=== PATIENT | female | born 1935 | race Caucasian/White ===

== ENCOUNTER 2023-05-22 09:45 | Inpatient (IN) | payer MEDICARE, SELFPAY ==
[2023-05-20] VITALS (14 sets, daily range): BP systolic 134–214; BP diastolic 96–138; BMI 21.8
--- NOTE | 2023-05-20 14:28 | ED.CVA ---
History of Present Illness
General
Chief Complaint: CVA/TIA Symptoms
Source: patient, records and ambulance crew
Time Seen by Provider: 05/20/23 14:28
Onset of Stroke Symptoms
Onset of symptoms known: Yes
Date of onset of symptoms: 05/20/23
Travel History
Have you had any contact with someone who has COVID-19?: Unable to Answer
Do you have any symptoms of coronavirus? Fever > 100 degrees, chills, cough, shortness of breath, sore throat, loss of taste or smell, muscle aches, or headache?: Unable to Answer
History of Present Illness
History of Present Illness:
This patient is an 88-year-old female presents emergency department with reported slurred speech and facial droop. Patient reportedly felt dizzy at 8 AM this morning but when staff saw her they did not notice any abnormalities. Then, at around
1:10 PM, patient called staff because she was not feeling right, and was noted to have slurred speech and a facial droop. EMS was called. Patient's blood pressure reportedly very elevated at the 200s over 120s. Patient is not on anticoagulant
medication and just takes a daily aspirin. No recent trauma.
Past History
Past History
ED Past Medical History: Arrthythmia (PAF), HTN, Psychiatric (Anxiety on Ativan) and Other (Cellulitis, hyponatremia, dementia); Negative Hypercholesterolemia, IDDM, NIDDM, MT or Renal failure
Social History
Tobacco: Non-smoker
Alcohol: Daily (Scotch one glass)
Drug: None
Personal:
Living: alone
Employment: Retired
Family History
Family History: Hypertension
Phy Exam
Physical Exam
Physical Exam:
GENERAL: Alert , in no apparent distress
EYE: pupils equal and reactive,, heel MT, no nystagmus
NECK: Supple, no significant adenopathy.
ENT: o/p clr, mmm.
CARDIAC: Irregularly irregular, tachycardic
LUNGS: Clear breath sounds bilaterally, no acute respiratory distress, no wheezes rales or rhonchi
ABDOMEN: Soft, without focal tenderness, no r/g
NEUROLOGICAL: Alert and oriented, no focal neurodeficits noted with the exception of slurred speech, slightly flattened nasolabial fold on the right which resolves with large smile
SKIN: Warm and dry, skin intact.
MUSCULOSKELETAL: No edema, well perfused.
PSYCH: Normal and appropriate interaction.
Course
Orders/Labs/Results
Orders:
Orders
05/20/23
Electrocardiogram (*1) Stat
Reason for Study: Chest Pain
Comment: DONE NO ORDER WAS ENTERED!!
05/20/23 14:24
Electrocardiogram (*1) Urgent
Reason for Study: Other
Other Reason for Exam: Possible Stroke
Bedside Glucose- Treatment ONCE
Cardiac Monitoring- Treatment ONCE
IV Insert/Care/Rem.- Treatment PRN
Vital Signs As Directed
Frequency: Other
Weight As Directed
Frequency: Once
Comment: ZERO STRETCHER SCALE FOR ACCURATE WEIGHT
O2 Therapy [RESP] Urgent
Titrate/Wean O2 to maintain O2 sat greater than (%): 93
Special Instructions: MAINTAIN CONTINUOUS O2 SATS > OR = 93%
05/20/23 14:25
CT Head W/o Cont STROKE ALERT Urgent
Reason For Exam: stroke alert, facial droop and slurred speech
EKG- Treatment ONCE
05/20/23 14:29
Labetalol HCl [Trandate] 20 mg .ROUTE .STK-MED ONE
05/20/23 14:30
CT Head/Neck Ang STROKE ALERT Urgent
Reason For Exam: stenosis
05/20/23 14:34
Cardiovascular Evaluation Urgent
Comment: ADD ON
Complete Blood Count/With Diff Urgent
Comprehensive Metabolic Panel Urgent
Ferritin Routine
Comment: ADD ON
Folate Routine
Comment: ADD ON
Glycohemoglobin (HgbA1c) Urgent
PTT Urgent
Prothrombin Time Urgent
TSH Reflex To Free T4 Routine
Comment: ADD ON
Troponin I Urgent
Vitamin B12 Routine
Comment: ADD ON
05/20/23 14:55
Urinalysis Reflex To Culture Urgent
Date Specimen was Collected: 05/20/23
Time Specimen was Collected: 14:45
Urine Microscopic Reflex Cult Urgent
Urine Culture Urgent
MATEUS Source: U
Specimen Description:
Date Specimen was Collected: 05/20/23
Time Specimen was Collected: 14:45
05/20/23 Dinner
Low Fat
At Your Request: Limited, Analyst Market Intelligence Required
Does patient need a safe tray?: No
NPO
Allow oral meds: No
Allow clear liquids: No
Comment: failed ED swallowing screening
05/20/23 15:05
DIETARY CONSULT Routine
Reason for Consult: failed swallowing screening
Speech Therapy Eval & Treat Routine
05/20/23 15:18
NEUROLOGY CONSULT Routine
Consulting Provider: Kerwin Morton
Was physician already notified: Yes
05/20/23 15:33
Add On- LAB Routine
Tests Added?: folate, ferritin, TSH reflex, B12, lipid panel, hbA1c
05/20/23 15:39
Admit/Transfer Patient As Directed
Co-Sign Provider:
Level of Care: Observation services
Assign to:: Telemetry
Physician / Group: Alan/hospitalist
Diagnosis: slurred speech, hand numbness
Reason for Telemetry: CVA/TIA
Date to Stop Telemetry: 05/23/23
Time to Stop Telemetry: 11:[address] Non Medication Order As Directed
Physician Order: exchange powell
Above order entered?: Yes
05/20/23 15:40
Code Status As Directed
Resuscitation Status: Full Code
05/20/23 15:43
HydrALAZINE [Apresoline] 10 mg IV Q4HPRN PRN
05/20/23 16:13
Urinalysis Urgent
Date Specimen was Collected: 05/20/23
Time Specimen was Collected: 16:12
Urine Microscopic Urgent
Date Specimen was Collected: 05/20/23
Time Specimen was Collected: 16:12
05/20/23 16:42
Acetaminophen [Tylenol/Feverall] 650 mg RECTAL Q4HPRN PRN
Acetaminophen [Tylenol] 1,000 mg PO Q8
Acetaminophen [Tylenol] 650 mg PO Q4HPRN PRN
05/20/23 16:42
Case Management Consult ONCE
Case Management Consult: Discharge Planning
Comment: stroke/tia
DIETARY CONSULT Routine
Reason for Consult: stroke/TIA
WOUND/OSTOMY CONSULT Routine
Reason for Consult: LE wound
Activity As Directed
Activity Level: As Tolerated
NIH Stroke Scale As Directed
Directions: Per protocol
Comment: every shift and with any change in condition or mental status
Neurological Checks As Directed
Frequency: q4h
Additional Instructions:: q4h x 24h upon admission to the floor, then qshift & with any change in condition
and mental status
Patient Education As Directed
Type: Stroke education packet
Comment: provide to patient and family
Pneumatic Compression Sleeves As Directed
Type: Knee high
Swallow Screening CVA/TIA ONLY As Directed
Comment: NPO until swallowing screening completed
If patient FAILS swallow screening:: NPO, Speech Therapy consult, Aspiration Precautions
If patient PASSES swallow screening, diet:: Low Fat
Above diet order entered?: Yes- passed screening
Vital Signs As Directed
Frequency: Per unit guidelines
Ot Eval And Treat Routine
Pt Eval And Treat Routine
Activity Level: As Tolerated
Speech Therapy Eval & Treat Routine
DX Deep Vein Thrombosis Video Routine
05/20/23 17:00
Aspirin Low Dose EC [Aspir Low (Enteric Coated)] 81 mg PO DAILY
Clopidogrel Bisulfate [Plavix] 75 mg PO DAILY
Flush (0.9% Sodium Chloride) [Flush (Nss)] See Dose Instructions IV PER PROTOCOL
05/20/23 20:00
Metoprolol Xl [Toprol Xl] 25 mg PO DAILY@1999
Sennosides [Senokot] 8.6 mg PO DAILY@1999
05/20/23 23:07
CR Chest Portable - 1 View Stat
Comment:
Reason For Exam: chest pain
Reason Study Needs to be Portable: Unable to Transport
05/20/23 23:10
0.9% Sodium Chloride [Nss (Preservative Free)] 8 ml IV NOW STA
Famotidine [Pepcid] 20 mg IV NOW STA
05/20/23 23:16
BMP [Basic Metabolic Panel] Stat
Magnesium Stat
05/20/23 23:17
Ipratropium/Albuterol Sulfate [Duoneb] 3 ml INH R Q4HPRN PRN
05/21/23 06:01
Ondansetron Injectable [Zofran] 4 mg IV NOW STA
05/21/23 06:02
Cardiovascular Evaluation IN AM
05/21/23 08:00
Docusate Sodium [Colace] 200 mg PO DAILY
Losartan [Cozaar] 100 mg PO DAILY
Pantoprazole [Protonix] 20 mg PO DAILY
Polyethylene Glycol Powder [Miralax] 17 grams PO DAILY
05/21/23 09:18
Wound Care As Directed
Location of Wound: LLE dry scabbed areas
Treatment of Wound: -cover with adaptic, gauze and kena prn drainage/protection after cleaning with saline,
change daily.
Moisture lotion to dry intact skin Le's daily.
05/21/23 09:25
Videofluoroscopy [RF Video Fluoro Swallow Exam] Routine
Comment:
Reason For Exam: Swallowing Function
05/21/23 Lunch
IDDSI 4 - Pureed
At Your Request: Limited Participation
Does patient need a safe tray?: No
Liquid Modification: Extremely Thick (Pudding)
Special Instructions: One to One Supervision
05/21/23 12:28
Echo 2D MMode Color/Doppler Routine
Reason for Study: acute stroke
05/21/23 12:46
HEMATOLOGY CONSULT Routine
Consulting Provider: Minh Roberson
Was physician already notified: Yes
05/21/23 12:57
Physiatry Consult Routine
Consulting Provider: Ray Atwood
Was physician already notified: Yes
05/21/23 13:30
Lansoprazole [Prevacid] 15 mg PO DAILY
05/21/23 14:19
CARDIOLOGY CONSULT Routine
Consulting Provider: Von Fay
Was physician already notified: Yes
05/21/23 15:33
MR Brain Without Contrast Routine
Reason For Exam: stroke workup- right facial drooping, dysarthria
Recent pill cam endoscopy?: No
05/21/23 16:09
MRSA Screen Routine
MATEUS Source: Nose
Specimen Description:
05/21/23 18:00
Atorvastatin [Lipitor] 40 mg PO QPM
05/21/23 20:00
Metoprolol [Lopressor] 12.5 mg PO BID
05/21/23 20:42
Powell Catheter [Catheter- Indwelling] As Directed
Reason for insertion: Chronic Powell on Admit
05/22/23
DX DVT Prevention Inpt Video Routine
05/22/23 05:55
Basic Metabolic Panel IN AM
Complete Blood Count/No Diff IN AM
Magnesium IN AM
05/23/23 05:38
Basic Metabolic Panel IN AM
Complete Blood Count/No Diff IN AM
05/23/23 11:00
DC Protocol for Telemetry ONCE
05/24/23 06:14
Basic Metabolic Panel IN AM
Complete Blood Count/No Diff IN AM
05/25/23 05:39
Basic Metabolic Panel IN AM
Complete Blood Count/No Diff IN AM
Abnormal Lab Results
05/20/23 05/20/23 05/20/23
14:34 14:55 16:13
WBC
RDW 14.6 H %
(11.5-14.5)
Monocytes % 9.8 H %
(1.7-9.3)
Sodium 129 L mmol/L
(135-145)
Chloride 95 L mmol/L
(98-107)
Creatinine
Hemoglobin A1c 5.9 H %
(4.0-5.6)
Total Bilirubin 1.6 H mg/dl
(0.2-1.3)
AST 38 H U/L
(14-36)
Alkaline Phosphatase 168 H U/L
(38-126)
Total Cholesterol 278 H mg/dl
(50-199)
Urine Nitrite (Reflex) Positive A
(Negative)
Ur Leukocyte Esterase 2+ A
(Negative)
Leukocyte Esterase Rfl 2+ A
(Negative)
Urine WBC 30-40 A /HPF
(0-5)
Urine Bacteria Few A
(Negative)
Urine Bacteria (Reflex) Moderate A
(Negative)
05/20/23 05/21/23 05/22/23
23:16 06:02 05:55
WBC 4.3 L 10^3/uL
(4.8-10.8)
RDW 14.7 H %
(11.5-14.5)
Monocytes %
Sodium 128 L mmol/L 131 L mmol/L
(135-145) (135-145)
Chloride 96 L mmol/L
(98-107)
Creatinine 0.5 L mg/dL
(0.6-1.0)
Hemoglobin A1c
Total Bilirubin
AST
Alkaline Phosphatase
Total Cholesterol 252 H mg/dl
(50-199)
Urine Nitrite (Reflex)
Ur Leukocyte Esterase
Leukocyte Esterase Rfl
Urine WBC
Urine Bacteria
Urine Bacteria (Reflex)
05/22/23 05:55
05/22/23 05:55
Vital Signs
Initial and Last Documented VS:
Initial Vital Signs
Pulse Pulse Ox
92 98
05/20/23 14:25 05/20/23 14:25
Last Documented Vital Signs
Temp Pulse Resp BP Pulse Ox
98.4 F 98 16 140/90 97
05/26/23 15:00 05/26/23 15:00 05/26/23 15:00 05/26/23 15:00 05/26/23 15:00
*Critical Care Note
Total Time (30-74mins, 75-104mins- exclusive of procedures): Not Applicable
Update Note
Update Note:
Patient presents to the Emergency Department with slurred speech and reported facial droop
Number and Complexity of Problems Addressed at the Encounter
� Chronic conditions affecting care:
� Acute Exacerbation and/or Progression of Chronic Illness:
� Differential Diagnosis includes: But not limited to TIA, CVA, hypertensive urgency, etc.
Amount and/or Complexity of Data to be Reviewed and Analyzed
� I performed an independent evaluation of and my interpretation is:
EKG: Read by me, A-fib, no acute ischemia, normal rate
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 No other significant vascular occlusion, aneurysm or dissection.
Right upper lobe nodularity as described likely reflecting chronic waxing/waning infectious/inflammatory processes. Recommend follow-up noncontrast CT chest in 3-6 months.
Xrays:
Laboratory Studies: CBC normal, remaining labs pending
Other:
� Review of other/old records reveals: Discharge summary reviewed September 2021, discharged October 29, patient noted to have mental status change, neurological exam generally unremarkable
� Clinical information was obtained by an independent historian:
� Prescriptions/Medications Considered but not given:
� Further testing considered but not performed:
Risk of Complications and/or Morbidity or Mortality of Patient Management
� Social determinants of health affecting care:
� Discussion with other providers (PCP, Hospitalists, Consultants, etc):
� Escalation of care including admission/observation vs risk of discharge considered: 3:05 PM bedside evaluation with Dr. Gentile from neurology� Patient is not considered a TNK or IAT candidate given symptoms are slightly
improving, not consider debilitating, NIH less than 6. Her history of von Willebrand's is also a relative contraindication to TNK. Dr. Morton will order aspirin Plavix and we will admit to the hospitalist with close monitoring of blood pressure.
ED Attending Note
-
Portions of this chart may have been created with voice recognition software.� Occasional wrong word or��sound alike� substitutions may have occurred due to the inherent limitations of voice recognition software.
Discharge Plan
Departure
Patient Disposition: Admit
Date of Disposition: 05/20/23
Time of Disposition: 15:07
Admit to: Telemetry
Presentation/result/management discussed w/ accepting /: audrey
Condition: Fair
Discharge Problem:
TIA (transient ischemic attack), Hypertension
Interventions
Interventions:
*Risk Screen - Suicide Last Done: 05/20/23 14:55
*General Assessment Last Done: 05/20/23 14:55
*Neglect/Abuse Screening Last Done: 05/20/23 14:46
ED- Fall Risk Assessment Last Done: 05/20/23 14:55
*ED COVID-19 Vaccine History Last Done: 05/20/23 14:55
*Nursing Disposition Last Done: 05/20/23 16:40
ED- Pulmonary Assessment Last Done: 05/20/23 15:07
ED- Neurological Assessment Last Done: 05/20/23 14:59
ED- Cardiac Assessment Last Done: 05/20/23 15:07
ED Swallowing Screen Last Done: 05/20/23 15:01
Discharge Date and Time
Discharge Date/Time: 05/20/23 16:40
[2023-05-20 14:40] LABS: % Basophils 0.8 % (0-2); % Eosinophils 1.2 % (0-6); % Immature Granulocytes 0.2 % (0-0.5); % Monocytes 9.8 % (1.7-9.3); Absolute Eosinophils 0.1 10^3/uL (0-0.7); Absolute Lymphocytes 1.3 10^3/uL (1.2-3.4); Absolute Monocytes 0.5 10^3/uL (0.1-0.6); Hemoglobin 14.4 g/dL (12.0-16.0); Mean Corp Hgb Conc. 33.5 g/dL (33.0-37.0); Mean Corpuscular Hgb 30.4 pg (27.0-31.0); Mean Corpuscular Volume 90.7 fL (81.0-99.0); Mean Platelet Volume 9.9 fL (7.4-10.4); Nucleated Red Blood Cells % 0 %; Platelet Count 306 10^3/uL (130-400); Red Blood Cell Count 4.74 10^6/uL (4.20-5.40); Red Cell Dist. Width 14.6 % (11.5-14.5); White Blood Cell Count 4.9 10^3/uL (4.8-10.8)
[2023-05-20 14:42] LABS: Glucose - Point of Care 80 mg/dl (70-99)
[2023-05-20 14:49] LABS: PT 13.2 Sec (11.4-14.6)
[2023-05-20 14:50] LABS: APTT 32.6 Sec (23.4-35.0)
--- NOTE | 2023-05-20 14:54 | CON.NEURO4 ---
Addendum entered and electronically signed by Kerwin Morton MD 05/20/23 16:50:
Studies reviewed.
I have personally examined the patient. I reviewed and agree with the TRIMMING CUTTER's Note.
My addenda:
Awake, alert, interactive. No acute distress.
Speech mildly thick and mild difficulty with word finding.
Follows 2-step requests w/ difficulty. No tremor.
Extra-ocular movements grossly intact.
Facial movements full and symmetric. Hearing intact to normal conversational volume.
Normal UE movements bilaterally.
Neck: full ROM.
Chest: no dyspnea
Heart: no JVD
Ext: (-) Clubbing, (-) Cyanosis, (-) Edema
IMPRESSIONS/RECOMMENDATIONS:
Abrupt onset of aphasia and dysarthria
? Due to hypertensive encephalopathy, TIA, or stroke
Unlikely to not cause harm by providing Tenecteplase due to prior diagnosis of Von Willebrand disease. No evidence of clot for retrieval by intra-arterial thrombectomy
restart Aspirin 81 mg daily then lifelong due to atrial fibrillation and elevated risk of hemorrhage
add Clopidogrel for 21 days then discontinue
rehab evaluations
can check MRI of brain, not clear would change therapy
goal of gradual improvement of hypertension, attempt to keep > 140/90 tonight, < 220/120
no further evaluation of the aneurysms demonstrated needed
D/W patient / family / nursing
Will continue to follow.
Original Note:
Documented by User: Lori Courtney NP 05/20/23 15:32
Consultation - Neurology 4
-
CONSULTING PHYSICIAN: Kerwin Morton MD
REFERRING PHYSICIAN: ER/Dr. Powell
DICTATED BY: ROBBIE Partida
DATE/TIME OF REQUEST: 05/20/23
DATE/TIME OF CONSULTATION: 05/20/23
Reason for Consultation: Stroke Alert
History of Present Illness:
This is an 88-year-old right-handed female who has presented to the hospital from [facility] as a stroke alert with report of dysarthria and right facial drooping. Patient was last known normal by staff at 0800 today (05/20/23). At 1300 she called
the nurses station and reported that she didn't feel well. Staff noted that her speech was dysarthric and her right face appeared droopy, prompting them to call 911. EMS report that her blood pressure was 210/130. CT head was obtained on arrival to
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 CTA head/neck is negative for any acute abnormalities but demonstrates a 4mm left MCA M3/M4 saccular aneurysm. NIHSS is currently a 3 for mild
right facial drooping, mild dysarthria, and mild aphasia. She denies any headache, dizziness, vision changes, numbness, weakness, chest pain,and palpitations. She has a chronic powell catheter and reports some dyspnea. She has Afib but is only taking
aspirin 81mg daily per Cardiology due to a history of von Willebrand's disease. She was previously evaluated by our Neurology service for confusion.
From previous evaluation by Dr. Hurst on 10/24/21:
'Patient is a right-handed 86-year-old woman with a past no history of atrial fibrillation, hypertension, von Willebrand's disease presenting the hospital as her daughter had talked her over phone and noted she seemed confused off her normal
baseline.� Patient has been living at [facility] in independent living apartment.� Patient at first feels like she is at [facility] and says that she came to the hospital because she was not feeling well but otherwise not able to give a great
deal of information about the events leading up to her hospitalization.� Reports that she has had a rash recently.� When asked about her recent medical conditions doctors visits and care at home she is not able to give a great deal of details
regarding this.� Spoke with her daughter Nikki over the phone who relayed that patient does have some confusion on and off over the phone but generally is conversational and they talk about their family and sometimes current sports events.� She
has not had any completely inappropriate speech or saying things that are not true.� Around of this year there was a change in her garbage schedule which patient was not able to adapt to at all and was confused by it not able to alter
her routines to meet the new schedule, has had other instances of not being able to adapt to changes in schedule or logistics of her independent living apartment.� There was a visit with physical therapy several months ago in which they noted that
there may been signs on visual examination of possible stroke.� Patient's daughter asked the patient about what it happened about following up with one particular doctor as she been taking her medications she will often say that she had not followed
up with her doctor as instructed or followed through with a plan.� Daughter did relate that she seemed to have a easy bleeding tendency in the past with a lot of bruising, to her knowledge no serious stomach or intestinal bleeding or requirement of
hospitalization, unclear on if she had been on aspirin and more powerful blood thinners at one point she does see a helicopter specialist.'
Past Medical History: Afib (aspirin), HTN, von Willebrand's disease, bradycardia/SSS, dementia, anxiety, cellulitis, SIADH, RA, GERD, squamous cell carcinoma
Surgical History: T&A, D&C x3, Mohs and radiation to LLE
Family History: Mother- CVA age 86. Brother- Parkinson disease.
Social History: Former tobacco. Daily scotch. No illicit drug use.
Allergies: See below.
Home Medications: See below.
Review of Symptoms:
Patient denies any fever, headache, chest pain, shortness of breath, GI or symptoms.
�Per the HPI.�All systems are reviewed negative except above.
Physical Exam:
The patient is afebrile, abdomen is nondistended, breathing is slightly labored, skin with PVD discoloration in BLE, no edema.
NIH Stroke Scale:
I performed the NIH stroke scale on the patient on 05/20/23 at 1430. The patient scored 3 points on the NIH stroke scale assessment, which were assigned as follows: See below.
Neurologic Examination:
The patient is awake, alert and oriented x 3. She is able to follow commands and answer questions appropriately. There is mild aphasia and dysarthria. On cranial nerve assessment, pupils are 3 mm bilateral, round and reactive to light and
accommodation. Visual rouse appear full. Extraocular movements are intact. Facial sensations are intact and bilaterally symmetrical, there is mild right facial drooping. Hearing is intact bilaterally to normal conversation volume. Tongue palate and
uvula are midline. Sternocleidomastoid strengths are full bilaterally. Motor strengths are 5/5 bilateral upper and lower extremities on medical research Ayr scale. There is no drift or involuntary movement noted. Deep tendon reflexes are 2+
bilateral upper and lower extremities and Babinski is absent bilaterally. There was no extinction noted on double simultaneous stimulation. Coordination is intact by finger to nose bilaterally.
Lab Results: See below.
Neuro Imaging:
1. CT Head 05/20/23: No acute intracranial abnormality noted. ASPECTS Score: 10. Stable encephalomalacia in the left parieto-occipital lobe.
2. CTA head/neck 05/20/23: 4 mm saccular aneurysm involving a left MCA M3/M4 cortical branch. No other significant vascular occlusion, aneurysm or dissection. Right upper lobe nodularity as described likely reflecting chronic waxing/waning
infectious/inflammatory processes. Recommend follow-up noncontrast CT chest in 3-6 months.
Differentials for the patient's presentation include:
1. Small left-sided ischemic infarct or TIA likely producing speech changes and right facial drooping.
2. Hypertensive or metabolic encephalopathy possible producing symptoms.
3. Dementia.
4. Von Willebrand's disease.
5. Incidental L MCA M3/M4 saccular aneurysm.
Patient has the following risk factors for their symptoms: Afib not on anticoagulation, HTN, age
IV Tenecteplase/IAT candidacy: Not a candidate due to NIHSS <6, relative contraindication von willebrands disease.
Recommendations:
-Initiate DAPT with aspirin 81mg and clopidogrel 75mg daily x21 days.
-Check aspirin efficacy testing.
-Permissive hypertension SBP<220, DBP<120 until 05/21/23 at 1300.
-MRI brain noncontrast ordered/pending.
-Checking blood work for metabolic abnormalities.
-Infectious workup per ER.
-LDL goal <70. Lipid panel is pending.
-Goal normoglycemia, hbA1c is pending.
-NIHSS and neurological checks per unit guidelines.
-Provide patient with a stroke education packet.
-PT/OT/ST evaluations.
-DVT prophylaxis.
-Outpatient follow-up with Neurosurgery regarding L MCA aneurysm.
-Will follow pending results.
Discussed patient care with: Dr. Morton, Dr. Powell, nursing staff, the patient
NIH Stroke Score
Subsequent NIH Scale
Date of Subsequent NIH Scale: 05/20/23
Time of Subsequent NIH Scale: 14:30
NIH Stroke Score
Level of Consciousness: 0 - Alert
LOC Questions: 0-Answers both correctly
LOC Commands: 0-Performs both correctly
Best Horizontal Gaze: 0-Normal
Visual Rouse: 0=Normal, no visual loss
Facial Palsy: 1=Minor paralysis
Motor - Right Arm: 0=No drift 10 seconds
Motor - Left Arm: 0=No drift 10 seconds
Motor - Right Le-No drift 5 seconds
Motor - Left Le-No drift 5 seconds
Limb Ataxia: 0-Absent
Sensation: 0-Normal
Best Language: 1-Mild aphasia
Dysarthria: 1-Mild slurring
Extinction and Inattention: 0-No abnormality
Total Score:: 3
Vital Signs and Labs
-
Vital Signs and Labs:
Vital Signs
Temp Pulse Resp BP Pulse Ox
97.4 F 97 23 196/128 98
05/20/23 14:48 05/20/23 15:00 05/20/23 15:00 05/20/23 15:00 05/20/23 15:00
Lab Results
05/20/23 14:34
05/20/23 14:34
PT 13.2 Sec (11.4-14.6) 05/20/23 14:34
INR 1.00 05/20/23 14:34
APTT 32.6 Sec (23.4-35.0) 05/20/23 14:34
Sodium 129 mmol/L (135-145) L 05/20/23 14:34
Potassium 4.9 mmol/L (3.5-5.1) 05/20/23 14:34
BUN 12 mg/dl (7-17) 05/20/23 14:34
Glucose 91 mg/dl (70-99) 05/20/23 14:34
Calcium 9.4 mg/dl (8.4-10.2) 05/20/23 14:34
Medications
-
Home Medications
Medication Instructions Recorded
metoprolol succinate 25 mg 25 mg PO DAILY@1999 Blood pressure 08/06/16
tablet,extended release 24 hr
losartan 100 mg tablet 100 mg PO DAILY Blood pressure 10/24/21
acetaminophen 500 mg tablet 1,000 mg PO Q8H Pain 05/20/23
(Tylenol Extra Strength)
aspirin 81 mg tablet,delayed 81 mg PO DAILY Blood Clot 05/20/23
release Prevention/Tx
cholecalciferol (vitamin D3) 50 100 mcg PO SUMOWEFR@0800 Supplement 05/20/23
mcg (2,000 unit) capsule (Vitamin
D3)
cholecalciferol (vitamin D3) 50 50 mcg PO TUTHSA@0800 05/20/23
mcg (2,000 unit) tablet (Vitamin
D3)
docusate sodium 100 mg capsule 200 mg PO DAILY 05/20/23
polyethylene glycol 3350 17 gram 17 grams PO DAILY Constipation 05/20/23
oral powder packet
sennosides 8.6 mg tablet (Senokot) 8.6 mg PO DAILY@1999 Constipation 05/20/23
Allergies
-
Allergies
Allergy/AdvReac Type Severity Reaction Status Date / Time
amiodarone Allergy Unknown Verified 05/20/23 14:39
amlodipine Allergy Unknown Verified 05/20/23 14:39
desmopressin Allergy Dehydration Verified 05/20/23 14:39
diltiazem Allergy Unknown Verified 05/20/23 14:39
doxycycline Allergy Unknown Verified 05/20/23 14:39
furosemide Allergy Unknown Verified 05/20/23 14:39
hydrochlorothiazide Allergy DEHYDRATION Verified 05/20/23 14:39
infliximab Allergy flushing Verified 05/20/23 14:39
and
breathing
problems
levofloxacin Allergy numbness Verified 05/20/23 14:39
sulfamethoxazole Allergy Unknown Verified 05/20/23 14:39

Documented by User: Kerwin Morton MD 05/20/23 16:19
NIH Stroke Score
NIH Stroke Score
Total Score:: 3
[2023-05-20 15:04] LABS: Urine Albumin Trace (Neg - Trace); Urine Bilirubin Negative (Negative); Urine Character Slightly Cloudy (Clear); Urine Color Straw; Urine Glucose Negative (Negative); Urine Ketone Negative (Negative); Urine Leukocyte 2+ (Negative); Urine Nitrite Positive (Negative); Urine Occult Blood Negative (Negative); Urine Urobilinogen Negative (Neg - 1+)
[2023-05-20 15:05] LABS: ALT (SGPT) 34 U/L (0-35); AST (SGOT) 38 U/L (14-36); Albumin 4.5 g/dl (3.5-5.0); Alkaline Phosphatase 168 U/L (38-126); Blood Urea Nitrogen 12 mg/dl (7-17); Calcium 9.4 mg/dl (8.4-10.2); Carbon Dioxide 28 mmol/L (22-30); Chloride 95 mmol/L (98-107); Glucose 91 mg/dl (70-99); Potassium 4.9 mmol/L (3.5-5.1); Sodium 129 mmol/L (135-145); Total Bilirubin 1.6 mg/dl (0.2-1.3); Total Protein 8.2 g/dl (6.3-8.2); eGFR > 60.00
[2023-05-20 15:14] LABS: Urine Amorphous Seen; Urine Bacteria Moderate (Negative)
[2023-05-20 15:15] LABS: Urine Red Blood Cell 0-2 /HPF (0-2)
--- NOTE | 2023-05-20 15:15 | HPS.HSE ---
Family Physician
-
Family Physician: Nica Lynn
Chief Complaint
-
BL hand numbness
History of Present Illness
HPI: 88-year-old female PMH Alzheimer's dementia, Von Willebrand disease type 1, Paroxysmal atrial fibrillation, SIADH, Chronic lower extremity hypertrophic lichen planus, Essential hypertension, history of alcohol use disorder, COPD, Rheumatoid
arthritis; p/w slurred speech and facial droop.�
Patient reportedly felt dizzy in the morning. At around 1:10 PM, patient called [facility] staff because she was not feeling right, and was noted to have slurred speech and facial droop.�EMS was called.� Patient's blood pressure reportedly very elevated at
the 200s over 120s.� Patient is not on anticoagulant medication and just takes a daily aspirin.� No recent trauma.
Of note, patient is a poor historian, but she is able to inform me that she has numbness in both her hands.
Denies to other symptoms.
Medical History
Past Medical History
Past Medical History: Reports Cancer (Squamous cell CA 2012 right/left legs), COPD (PNA/ lung mass 09/16/2014), GERD, HTN, Valvular Disease, Psychiatric (Anxiety) and Other (Hyponatremia, SIADH, CHITIMACHA)
Past Surgical History: Reports Gynocological (D&C), Tonsilectomy and Other (Bilateral cataract , Mohs surgery 2012 left/right leg squamous cell CA)
Social History
Tobacco: Non-smoker
Alcohol: Occasional
Drug: None
Personal: Single
Living: Alone ([facility])
Employment: Retired
Family History
Family History: Not pertinent
Allergies / Home Medications
Allergies reflects when Allergies were last updated in [employer].
Home Medications with original date entered in [employer]
Allergy/Medication List:
Allergies
Allergy/AdvReac Type Severity Reaction Status Date / Time
amiodarone Allergy Unknown Verified 05/20/23 14:39
amlodipine Allergy Unknown Verified 05/20/23 14:39
desmopressin Allergy Dehydration Verified 05/20/23 14:39
diltiazem Allergy Unknown Verified 05/20/23 14:39
doxycycline Allergy Unknown Verified 05/20/23 14:39
furosemide Allergy Unknown Verified 05/20/23 14:39
hydrochlorothiazide Allergy DEHYDRATION Verified 05/20/23 14:39
infliximab Allergy flushing Verified 05/20/23 14:39
and
breathing
problems
levofloxacin Allergy numbness Verified 05/20/23 14:39
sulfamethoxazole Allergy Unknown Verified 05/20/23 14:39
Home Medications
metoprolol succinate 25 mg tablet,extended release 24 hr 25 mg PO DAILY@1999 Blood pressure 08/06/16
losartan 100 mg tablet 100 mg PO DAILY Blood pressure 10/24/21
acetaminophen 500 mg tablet (Tylenol Extra Strength) 1,000 mg PO Q8H Pain 05/20/23
aspirin 81 mg tablet,delayed release 81 mg PO DAILY Blood Clot Prevention/Tx 05/20/23
cholecalciferol (vitamin D3) 50 mcg (2,000 unit) capsule (Vitamin D3) 100 mcg PO SUMOWEFR@0800 Supplement 05/20/23
cholecalciferol (vitamin D3) 50 mcg (2,000 unit) tablet (Vitamin D3) 50 mcg PO TUTHSA@0800 05/20/23
docusate sodium 100 mg capsule 200 mg PO DAILY 05/20/23
polyethylene glycol 3350 17 gram oral powder packet 17 grams PO DAILY Constipation 05/20/23
sennosides 8.6 mg tablet (Senokot) 8.6 mg PO DAILY@1999 Constipation 05/20/23
Review of Systems
-
Neurological: Reports See HPI and Numbness (BL hands)
Physical Exam
Vital Signs
Vital Signs
Temp Pulse Resp BP Pulse Ox
36.3 C 97 23 196/128 98
05/20/23 14:48 05/20/23 15:00 05/20/23 15:00 05/20/23 15:00 05/20/23 15:00
Physical Exam
General: Well Developed, Well Nourished, No Apparent Distress, Comfortable, Conversant, Slurred Speech and Appears Chronically Ill
HEENT: NormoCephalic, Moist mucous membranes and Atraumatic
Respiratory: Clear and Non Labored Respirations; No Accessory Resp Muscle Use
Cardiac: S1/S2 and Regular Rhythm; No Murmur or Rub
GI: Soft, Non Tender, Non Distended and Normal Bowel Sounds; No Organomegaly
Rectal: Deferred by Provider
Genito-urinary: Benton
Musculoskeletal: No Clubbing, No Cyanosis and No Edema
Neuro: Awake and Alert
Psych: Calm
Laboratory Results
-
05/20/23 14:34
05/20/23 14:34
Laboratory Results
PT 13.2 Sec (11.4-14.6) 05/20/23 14:34
INR 1.00 05/20/23 14:34
APTT 32.6 Sec (23.4-35.0) 05/20/23 14:34
Total Bilirubin 1.6 mg/dl (0.2-1.3) H 05/20/23 14:34
AST 38 U/L (14-36) H 05/20/23 14:34
ALT 34 U/L (0-35) 05/20/23 14:34
Alkaline Phosphatase 168 U/L (38-126) H 05/20/23 14:34
Data Reviewed
-
CT Scan: Report Reviewed by me
Lab Data: Labs Reviewed by me
Impression/Plan
-
HPI: 88-year-old female PMH Alzheimer's dementia, Von Willebrand disease type 1, Paroxysmal atrial fibrillation, SIADH, Chronic lower extremity hypertrophic lichen planus, Essential hypertension, history of alcohol use disorder, COPD, Rheumatoid
arthritis; p/w slurred speech and facial droop.�
Patient reportedly felt dizzy in the morning. At around 1:10 PM, patient called NH staff because she was not feeling right, and was noted to have slurred speech and facial droop.�EMS was called.� Patient's blood pressure reportedly very elevated at
the 200s over 120s.� Patient is not on anticoagulant medication and just takes a daily aspirin.� No recent trauma.
Of note, patient is a poor historian, but she is able to inform me that she has numbness in both her hands.
Denies to other symptoms.
A/P:
# slurred speech, facial droop, BL hand numbness L > R, possible TIA/acute stroke vs HTN urgency
Admission CT head showed no acute intracranial abnormality.
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 No other significant vascular occlusion, aneurysm or dissection.
Check follow up MRI brain
Check Lipid panel, A1C as part of TIA/stroke work up
Cont MANAGER INTENSIVE CARE losartan, Toprol for BP control, add IV hydralazine for SBP > 180
Of note, UA largely unrevealing
Benton to be exchanged in ED
PT OT eval
# Chronic Benton POA
Benton to be exchanged in ED
UA largely unrevealing, Follow urine Cx
# Hyponatremia
Monitor
# Alzheimer's dementia
Pt is AOx2-3, slow to respond to questions asked
# Von Willebrand disease type 1
# Paroxysmal atrial fibrillation
Not on OAC MANAGER INTENSIVE CARE
# Chronic lower extremity hypertrophic lichen planus
wound care CS
# COPD
# Rheumatoid arthritis
DVT ppx: SCD
FC
[2023-05-20 15:16] LABS: Troponin I < 0.012 ng/ml
[2023-05-20 16:22] LABS: Urine Albumin Negative (Neg - Trace); Urine Bilirubin Negative (Negative); Urine Character Clear (Clear); Urine Color Straw; Urine Glucose Negative (Negative); Urine Ketone Negative (Negative); Urine Leukocyte 2+ (Negative); Urine Nitrite Negative (Negative); Urine Occult Blood Negative (Negative); Urine Urobilinogen Negative (Neg - 1+)
[2023-05-20 16:24] LABS: Total Cholesterol 278 mg/dl (50-199); Triglyceride 114 mg/dl (10-149); Very Low Density Lipoprotein 22 mg/dl (0-30)
[2023-05-20 16:31] LABS: Urine Squamous Cell 0-2 /LPF (Few)
[2023-05-20 16:31] LABS: HDL Cholesterol 119 mg/dl; LDL Cholesterol, Calculated 137 mg/dl
[2023-05-20 16:33] LABS: Urine Bacteria Few (Negative); Urine Red Blood Cell 0-2 /HPF (0-2); Urine White Cell 30-40 /HPF (0-5)
[2023-05-20 17:11] LABS: TSH Reflex To Free T4 1.99 uIU/ml (0.47-4.68)
[2023-05-20 17:12] LABS: Ferritin 84.8 ng/ml (11.1-264.0)
[2023-05-20] MEDS: TYLENOL 1000 MG PO ×2 (17:21→23:10)
[2023-05-20] MEDS: ASPIR LOW (ENTERIC COATED) 81 MG PO (17:21)
[2023-05-20] MEDS: PLAVIX 75 MG PO (17:21)
[2023-05-20 17:43] LABS: Folate 11.3 ng/ml (2.76-20); Vitamin B12 494 pg/ml (239-931)
--- NOTE | 2023-05-20 17:53 | PTCARENOTE ---
pt arrived to unit at 1650 via stretcher from ED. pt was pulled over from stretcher to bed. assessment, NIH (score of 4), and swallow screen completed by this nurse. passed swallow screen, low fat diet ordered, PO meds given. pt on tele number 5
running afib/aflutter hr in the 80s. BP 178/99 upon arrival to floor, PRN hydralazine order for SBP >180, continue to monitor at this time. other VSS. Pt AAOx3/INAJA, oriented to room. Admissions completed by admission nurse Kathleen choe/ family member at
the bedside.
[2023-05-20] MEDS: TOPROL XL 25 MG PO (19:39)
[2023-05-20] MEDS: SENOKOT 8.59999999999999964 MG PO (19:39)
--- NOTE | 2023-05-20 23:07 | W.PN.UPDATE ---
Update Note
Progress Note Update
Patient complained of chest pain/ sternum and epigastric area described as pressure that increased with inspiration, non radiating. diminished lung sound on exam. EKG done, stat labs, and chest x-ray ordered. Patient has history of Asthma/ COPD, duo
nebs PRN added, and giving history of GERD, one time dose of famotidine IV was given. Rechecked on the patient, she felt better and pain was relieved. Protonix 20mg Po daily added.
[2023-05-20] MEDS: PEPCID 20 MG IV (23:24)
[2023-05-20] MEDS: NSS (PRESERVATIVE FREE) 8 ML IV (23:24)
[2023-05-20] MEDS: DUONEB 3 ML INH (23:38)
[2023-05-20 23:51] LABS: Blood Urea Nitrogen 11 mg/dl (7-17); Calcium 9.6 mg/dl (8.4-10.2); Carbon Dioxide 26 mmol/L (22-30); Chloride 96 mmol/L (98-107); Estimated Creatinine Clearance 52 ml/min; Glucose 89 mg/dl (70-99); Magnesium 1.9 mg/dl (1.6-2.3); Potassium 4.4 mmol/L (3.5-5.1); Sodium 128 mmol/L (135-145); eGFR > 60.00
[2023-05-21] VITALS (10 sets, daily range): BP systolic 106–152; BP diastolic 63–95; PULSE 88; O2SAT 97; BMI 21.1
[2023-05-21] MEDS: APRESOLINE 10 MG IV (05:50)
[2023-05-21] MEDS: ZOFRAN 4 MG IV (06:23)
[2023-05-21 06:49] LABS: HDL Cholesterol 92 mg/dl; LDL Cholesterol, Calculated 144 mg/dl; Total Cholesterol 252 mg/dl (50-199); Triglyceride 84 mg/dl (10-149); Very Low Density Lipoprotein 16 mg/dl (0-30)
--- NOTE | 2023-05-21 07:39 | W.PN.NEURO.1 ---
Today's Communication / Plan
-
-Goal normotension
-NIH and neurologic checks
-Speech therapy
-MRI brain without contrast
-Continue aspirin 81 mg daily, is felt risks of anticoagulation are too great given von willebrand disease
-Noted Cerebral Aneurysm on CTA is asymptomatic and with size and patient age and location does not need further following or interventional evaluation
Will follow
Neuro Assessment/Plan
Assessment
88 year old woman with history of atrial fibrillation, Von Willebrand's disease presenting with dysarthria and speech change, severely elevated BP's
May not have been compliant with aspirin 81 mg daily at home
Ddx ischemic stroke of left hemisphere due to afib or diffuse embolic event given atrial fibrillation and not on anticoagulation due to von willebrand disease versus hypertensive encephalopathy
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 No other significant vascular occlusion, aneurysm or dissection.
Cerebral Aneurysm is asymptomatic and with size and patient age and location does not need further following or interventional evaluation
Subjective/Objective
Subjective Data
Date of Service: May 21, 2023
No acute events, patient notes that speech continues to be abnormal, she isn't sure if she was taking aspirin everyday or not
Objective Data
Vital Signs
Temp Pulse Resp BP Pulse Ox
98.3 F 91 18 131/83 99
05/21/23 06:38 05/21/23 06:38 05/21/23 03:02 05/21/23 06:38 05/21/23 06:38
Lab Results
05/20/23 14:34
05/20/23 23:16
PT 13.2 Sec (11.4-14.6) 05/20/23 14:34
INR 1.00 05/20/23 14:34
APTT 32.6 Sec (23.4-35.0) 05/20/23 14:34
Sodium 128 mmol/L (135-145) L 05/20/23 23:16
Potassium 4.4 mmol/L (3.5-5.1) 05/20/23 23:16
BUN 11 mg/dl (7-17) 05/20/23 23:16
Glucose 89 mg/dl (70-99) 05/20/23 23:16
Calcium 9.6 mg/dl (8.4-10.2) 05/20/23 23:16
LDL Cholesterol, Calc 144 mg/dl 05/21/23 06:02
Vitamin B12 494 pg/ml (239-931) 05/20/23 14:34
Patient Allergies
amiodarone Allergy (Verified 05/20/23 14:39)
Unknown
amlodipine Allergy (Verified 05/20/23 14:39)
Unknown
desmopressin Allergy (Verified 05/20/23 14:39)
Dehydration
diltiazem Allergy (Verified 05/20/23 14:39)
Unknown
doxycycline Allergy (Verified 05/20/23 14:39)
Unknown
furosemide Allergy (Verified 05/20/23 14:39)
Unknown
hydrochlorothiazide Allergy (Verified 05/20/23 14:39)
DEHYDRATION
infliximab Allergy (Verified 05/20/23 14:39)
flushing and breathing problems
levofloxacin Allergy (Verified 05/20/23 14:39)
numbness
sulfamethoxazole Allergy (Verified 05/20/23 14:39)
Unknown
Review of Systems
-
History Source: Patient
All other systems: Reviewed and negative
Constitutional: No Symptoms
EENT: No Symptoms Reported
Respiratory: No Symptoms
Cardiac: No Symptoms
Abdomen/GI: No Symptoms
Genitourinary: No Symptoms
Musculoskeletal: No Symptoms
Skin: No Symptoms
Neuro: Speech Problem
Endocrine: No Symptoms
Hematologic / Lymphatic: No Symptoms
Allergy / Immunology: No Symptoms
Physical Exam
-
General: Appears Stated Age
Eyes: No Ptosis
HEENT: Normocephalic
Neck: No Bruits Bilaterally
Respiratory: Clear to Auscultation
Cardiac: Regular Rhythm
GI: Normal Bowel Sounds
Skin: Unremarkable
Extremities: No Clubbing
Psych: Unremarkable
Extended Neurological Exam
Mood & Affect: Mood Unremarkable and Affect Unremarkable
Attention Span & Concentration: Awake, Alert and Interactive
Memory: Reduced
Tremor: Hand Tremor Absent
Involuntary Movement: None
Speech: Expressive Aphasia; Negative Dysarthric
Cranial Nerve II: Left Eye: Pupillary Reactivity Unremarkable, Pupillary Size Unremarkable and Visual Rouse Intact
Cranial Nerve II: Right Eye: Pupillary Reactivity Unremarkable, Pupillary Size Unremarkable and Visual Rouse Intact
Cranial Nerves III, IV, : Extraocular Movement: Extraocular Movement Full in all Directions
Muscle Strength, Overall: Full Throughout
Touch Sensation: Unremarkable
Coordination: [id number] Testing Unremarkable
Data Reviewed
-
CT-A: Report Reviewed and Image Reviewed
CT Head: Report Reviewed and Image Reviewed
MRI Head: Ordered and Pending
--- NOTE | 2023-05-21 08:40 | PTOTSP ---
Speech Language Pathology
Pt seen for speech/language evaluations. Mild-mod dysarthria noted with incoordinated and slow diadochokinetic (DDK) rates. Language evaluated via the Quick Aphasia Battery (QAB), form 1A. Pt with overall score of 8.52, indicative of overall mild
impairment. Pt with the following scores on the following subtests: word comprehension= 10.00 (WNL), sentence comprehension= 8.33 (mild), word finding= 6.75 (mod), grammatical construction= 8.38 (mild), speech motor programming= 10.00 (WNL),
repetition= 9.58 (WNL), reading= 8.75 (mild).
Pt also seen for clinical bedside swallow evaluation. P.O. trials of thin liquids via cup/straw and jello provided. With cup sip of water, R labial leakage noted followed by significant coughing. Thin liquid via single straw sip with improved
tolerance. Tsp of jello provided with audible swallow and significant coughing episode, lasting 3 minutes. Suspect aspiration. After a break, provided another tsp of jello with no overt coughing. Inconsistent swallow function noted with
significant concern for aspiration.
Recommend:
(1) NPO including meds
(2) VSE
(3) Will consider Aspiration Risk Hydration Protocol (ARHP) pending VSE results as plan to complete today
(4) Oral care 4x/day with suctioning as needed
(5) CARD MOUNTER to continue to follow.
RN and MD notified of results/recommendations
--- NOTE | 2023-05-21 08:54 | WOUNDNOTE ---
Lucía CRUZ (lower)
--- NOTE | 2023-05-21 08:55 | WOUNDNOTE ---
L CALF (ANTERIOR MEDIAL)
--- NOTE | 2023-05-21 08:55 | WOUNDNOTE ---
DESI (R LATERAL, L MEDIAL)
--- NOTE | 2023-05-21 08:56 | WOUNDNOTE ---
[facility] RN note: Patient admitted with slurred speech, hand numbness, facial drop. Patient admitted from [facility] (SNF?).
See H&P for complete history.
PMH: Alzeimer's, Von Willebrand, a fib, LE Lichen planus, HTN, ETOH disorder, COPD, RA, squamous cell ca 2012, Moh's surgery 2012 Le's, pneumonia, lung mass 08/2014, valvular disease, anxiety, [place], B[place].
Wound Location and type/assessment: Patient admitted with: 3 dry scabbed LLE skin lesions, no drainage, no erythema, trace LLE edema. +Pedal pulses heard faintly via portable Doppler. Toes warm. Patient denies leg pain. Sacral/buttocks mild dull
red.
Appetite: low fat diet. ST in to see patient.
Pressure redistribution devices in place: [employer] Accumax. Patient can turn self in bed and lift heels off bed.
Plan: Heels elevated off bed with air chair cushion. Instructed patient pressure injury prevention measures.
Discussed with RN Jefry nurse.
Care plan to be updated. Will sign off. Contact if needed. Recommend patient follow up with auto finance sales rep and hide handler.
--- NOTE | 2023-05-21 09:00 | WOUNDNOTE ---
[facility] RN note: Patient admitted with slurred speech, hand numbness, facial drop. Patient admitted from [facility] (SNF?).
See H&P for complete history.
PMH: Alzeimer's, Von Willebrand, a fib, LE Lichen planus, HTN, ETOH disorder, COPD, RA, squamous cell ca 2012, Moh's surgery 2012 Le's, pneumonia, lung mass 08/2014, valvular disease, anxiety, [place], Benton.
Wound Location and type/assessment: Patient admitted with: 3 dry scabbed LLE skin lesions, no drainage, no erythema, trace LLE edema. +Pedal pulses heard faintly via portable Doppler. Toes warm. Patient denies leg pain. 12/17/17 MICHA R toe pressure
.62, L toe pressure .57, multiphasic. Sacral/buttocks mild dull red.
Appetite: low fat diet. ST in to see patient.
Pressure redistribution devices in place: [employer] Accumax. Patient can turn self in bed and lift heels off bed.
Plan: Heels elevated off bed with air chair cushion. Instructed patient pressure injury prevention measures.
Discussed with RN Jefry nurse.
Care plan to be updated. Will sign off. Contact if needed. Recommend patient follow up with cloth dyer and backpackers manager.
--- NOTE | 2023-05-21 09:20 | WOUNDNOTE ---
Updated Dr. Phillips via tiger text re: scabbed skin lesions LLE, pedal pulses heard faintly via portable Doppler. Hospitalist approved local care and can add 'follow up with photogravure press operator to eval LLE lesions' and 'follow up with forensic investigator for toenail
care'.
[2023-05-21 09:34] LABS: Glycohemoglobin (HgbA1c) 5.9 % (4.0-5.6)
--- NOTE | 2023-05-21 11:32 | W.PN.HOSP.TC ---
Today's Communication/Plan
-
see A/P
Assessment / Plan
Assessment / Plan
HPI: 88-year-old female PMH Alzheimer's dementia, Von Willebrand disease type 1, Paroxysmal atrial fibrillation, SIADH, Chronic lower extremity hypertrophic lichen planus, Essential hypertension, history of alcohol use disorder, COPD, Rheumatoid
arthritis; p/w slurred speech and facial droop.�
Patient reportedly felt dizzy in the morning. At around 1:10 PM, patient called NH staff because she was not feeling right, and was noted to have slurred speech and facial droop.�EMS was called.� Patient's blood pressure reportedly very elevated at
the 200s over 120s.� Patient is not on anticoagulant medication and just takes a daily aspirin.� No recent trauma.
Of note, patient is a poor historian, but she is able to inform me that she has numbness in both her hands.
Denies to other symptoms.
A/P:
# slurred speech, facial droop, BL hand numbness L > R, due to acute stroke left external capsule
Admission CT head showed no acute intracranial abnormality.
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 No other significant vascular occlusion, aneurysm or dissection.
Follow up MRI brain noted small acute infarct involving the left external capsule. Moderate chronic microvascular white matter ischemic change. Left occipital old/remote infarct. Small chronic right thalamic lacunar infarct. Atrophy.
LDL 144, start Lipitor 40 mg HS
A1c 5.9%
Check echo
Cont BOAT TENDER losartan, Toprol for BP control, added IV hydralazine for SBP > 180
VSE cleared for pureed with very thick liquid, supervised feeding
Of note, UA largely unrevealing
Benton was exchanged in ED�2/
PT OT eval
Neuro on board, d/w Neuro felt that DAPT would be too high risk with Von Willebrand disease
Cont BOAT TENDER ASA for now
Heme CS to weight in on antiplatelet/OAC etc in setting of acute stroke.
# Chronic Benton POA
Benton was exchanged in ED�2
UA largely unrevealing, Follow urine Cx
# Hyponatremia
Monitor
# Alzheimer's dementia
Pt is AOx2-3, slow to respond to questions asked
# Von Willebrand disease type 1
# Persistent Atrial fibrillation
tele noted persistent A fib
Not on OAC BOAT TENDER due to Von Willebrand disease
# Chronic lower extremity hypertrophic lichen planus
wound care CS
# COPD
# Rheumatoid arthritis
DVT ppx: SCD
FC
DW daughter at bedside
DW Neuro
total time spent 51 min
Anticipated Discharge: 24 - 48 hours
Subjective/Interval History
-
Date of Service: May 21, 2023
Objective Data
-
Labs:
Laboratory Results
05/20/23
23:16
Sodium 128 L
Potassium 4.4
Chloride 96 L
Carbon Dioxide 26
BUN 11
Creatinine 0.5 L
Glucose 89
Calcium 9.6
Vital Signs:
Vital Signs
Temp Pulse Resp BP Pulse Ox
36.5 C 80 18 142/94 98
05/21/23 07:00 05/21/23 07:00 05/21/23 07:00 05/21/23 07:00 05/21/23 07:00
I&O
05/20/23 05/21/23 05/22/23
06:59 06:59 06:59
Intake Total 480 / 480
Output Total 1150 / 1150
Balance -670 / -670
Review of Systems
-
Neuro: Reports Numbness (hands and feet)
Physical Exam
-
General: Well Developed, No Apparent Distress, Comfortable and Appears Chronically Ill
HEENT: Normocephalic, Atraumatic, Moist Mucous Membranes, Nose Appears Normal and Ears Appear Normal
Respiratory: Clear to Auscultation and Non Labored Respirations; Negative Accessory Resp Muscle Use
Cardiac: Regular Rhythm and S1/S2; Negative Murmur, Rub or Gallop
GI: Soft, Nontender, Nondistended and Normal Bowel Sounds; Negative Organomegaly
Rectal: Deferred by Provider
Musculoskeletal: No Clubbing, No Cyanosis and No Edema
Skin: Negative Rash
Neuro: Awake
Psych: Calm
Data Reviewed
-
MRI: Report Reviewed by me, Discussed with Patient and Discussed with Family
Labs: Labs Reviewed by me
[2023-05-21] MEDS: TYLENOL 1000 MG PO (13:06)
[2023-05-21] MEDS: MIRALAX PO (13:06)
[2023-05-21] MEDS: ASPIR LOW (ENTERIC COATED) 81 MG PO (13:06)
[2023-05-21] MEDS: COLACE 200 MG PO (13:06)
[2023-05-21] MEDS: COZAAR 100 MG PO (13:06)
--- NOTE | 2023-05-21 14:07 | CON.MD ---
Documented by User: Kathleen Cobian PA-C 05/22/23 13:50
Consultation - Medical
-
Referring Provider: Yuni Phillips
Chief Complaint: CVA
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
[facility] on 05/20/2023 with slurred speech, dysarthria, right facial drooping and markedly hypertensive. These symptoms were noted by staff at [facility] where she resides. She may not have been compliant with aspirin 81 mg daily at home.
MRI of brain with small acute infarct involving the posterior margin of the left external capsule extending towards the periventricular white matter camara radiata at the level of the body of left lateral ventricle. Moderate chronic microvascular
white matter ischemic change. Left occipital old/remote infarct. Small chronic right thalamic lacunar infarct.
Neurology felt high likelihood the infarct is due to atrial fibrillation, other possibility is due to small vessel disease with history of hypertension. Patient may be candidate for Watchman device which would help with protection against
cardioembolic stroke given the high risks of therapeutic anticoagulation in the setting of von Willebrand's disease. Agreed with proceeding with a cardiology evaluation.
Per cardiology, patient could be considered for watchman however short-term anticoagulation is usually necessary periprocedurally. Watchman coordinator has been notified. Patient will be set up for follow-up with consultation with the watchman
implanter which will be scheduled.
Per hematology, type I von Willebrand's was evaluated and diagnosed in [place] with no records. If stroke felt to be embolic CVA would favor a Watchman procedure with dual antiplatelet therapy for 45 days posttreatment over long-term anticoagulation
with dual antiplatelet therapy or long-term anticoagulation with Eliquis.
-Neuro/Heme/Card on board, d/w specialists, the decision is to pursue Watchman for her persistent A fib and likely start DAPT AFTER procedure. No DAPT or OAC before procedure due to high risk of bleeding in setting of Von Willebrand disease.
Video swallow with silent aspiration for then, nectar barium by spoon and by cup. Silent aspiration with secondary swallow for honey consistency barium by spoon.
Past Medical History: Dementia, COPD-lifelong nonsmoker, RA, Moderate MR by echo 05/21/2023, chronic Hyponatremia, h/o SIADH, Hypertension, GERD,anemia, persistent atrial fibrillation not on anticoagulation, von Willebrand's disease, prior infarct on
MRI
Procedure History: T&A, D&C x3, Mohs and radiation to LLE
Family History: Hypertension, Mother- CVA age 86. Brother- Parkinson disease.
Social History:
Functional Level Premorbidly: Independent with rolling walker. Get meals and assistance with showers, meds and meals from personal care section of [facility]
Functional Level Currently: Supine to sit�min assist, supervision with cues needed for midline posture due to slight right lean. Patient aware and able to self-correct, sit to stand�mod assist, stand to sit�mod assist, ambulate 15 feet x 1 with
rolling walker and mod assist, assist of 2 for lift off and balance. Static supported standing�mod assist due to right lean,Can stand with moderate support of 1 person, grooming�mod assist, toileting�mod to max assist, lower extremity self-care�mod
assist,
Tobacco: Non-smoker
Alcohol: Daily scotch 1 glass
Drug use: Denies
Lives with: [facility] personal care section-alone
24-hour assistance available:
Number of floors: 0
# steps to enter: 0
# steps to second floor: 0
Potential First floor set up:yes
Driving: yes
Occupation: Retired
�
Allergies:
Allergy/AdvReac Type Severity Reaction Status Date / Time
amiodarone Allergy Unknown Verified 05/20/23 14:39
amlodipine Allergy Unknown Verified 05/20/23 14:39
desmopressin Allergy Dehydration Verified 05/20/23 14:39
diltiazem Allergy Unknown Verified 05/20/23 14:39
doxycycline Allergy Unknown Verified 05/20/23 14:39
furosemide Allergy Unknown Verified 05/20/23 14:39
hydrochlorothiazide Allergy DEHYDRATION Verified 05/20/23 14:39
infliximab Allergy flushing Verified 05/20/23 14:39
and
breathing
problems
levofloxacin Allergy numbness Verified 05/20/23 14:39
sulfamethoxazole Allergy Unknown Verified 05/20/23 14:39
Review of Systems:
Constitutional: (x) Normal _
Eye: (x) Normal _
Ear/Nose/Throat: (x) Normal _
Respiratory: (x) Normal _
Cardiovascular: (x) persistent A-fib, hypertension
Gastrointestinal: (x) Normal _
Genitourinary: (x) Normal _
Musculoskeletal: (x) Normal _
Integumentary: (x) Lichen planus
Neurologic: (x) CVA
Psychiatric: (x) Normal _
Endocrine: (x) Normal _
Hematologic/Lymphatic: (x) Normal _
Allergic/Immunologic: (x) Normal _
Medications:
Active Current Visit Medication List
Category Date Time Status
Acetaminophen [Tylenol/Feverall] Med 05/20/23 16:42 Active
650 mg RECTAL Q4HPRN PRN
Acetaminophen [Tylenol] Med 05/20/23 16:42 Active
1,000 mg PO Q8
Acetaminophen [Tylenol] Med 05/20/23 16:42 Active
650 mg PO Q4HPRN PRN
Aspirin Low Dose EC [Aspir Low (Enteric Coated)] Med 05/20/23 17:00 Active
81 mg PO DAILY
Atorvastatin [Lipitor] Med 05/21/23 18:00 Active
40 mg PO QPM
Docusate Sodium [Colace] Med 05/21/23 08:00 Active
200 mg PO DAILY
Flush (0.9% Sodium Chloride) [Flush (Nss)] Med 05/20/23 17:00 Active
See Dose Instructions IV PER PROTOCOL
HydrALAZINE [Apresoline] Med 05/20/23 15:43 Active
10 mg IV Q4HPRN PRN
Ipratropium/Albuterol Sulfate [Duoneb] Med 05/20/23 23:17 Active
3 ml INH R Q4HPRN PRN
Lansoprazole [Prevacid] Med 05/21/23 13:30 Active
15 mg PO DAILY
Losartan [Cozaar] Med 05/21/23 08:00 Active
100 mg PO DAILY
Metoprolol [Lopressor] Med 05/21/23 20:00 Active
12.5 mg PO BID
Polyethylene Glycol Powder [Miralax] Med 05/21/23 08:00 Active
17 grams PO DAILY
Sennosides [Senokot] Med 05/20/23 20:00 Active
8.6 mg PO DAILY@1999
Vitals:
Temp Pulse Resp BP Pulse Ox
98.0 F 82 18 120/79 96
05/22/23 11:00 05/22/23 11:00 05/22/23 11:00 05/22/23 11:00 05/22/23 11:00
Height 5 ft 2 in
Actual Weight 51.71 kg
Body Mass Index (BMI) 20.9
Physical Exam:
General Appearance/Observation: Well-developed, well-nourished individual in no apparent distress.
Pain/Comfort Assessment: Denies
Mood/Affect: Appropriate
Integumentary/Operative Site:
�� Pressure Ulcer Evaluation: absent over heels. Very dry, scaly skin bottom of feet and legs
��
�� Other Type of Wound: healing Scabs on lower extremities, more on left
��
Eyes: Conjunctiva/Lids: normal ��� Pupils: pupils equal round and reactive to light and Accommodation
Ears/Nose/Throat: oral mucosa moist,� throat clear.������������ Lips/Teeth/Gums: normal
Neck: No muscle spasm or tenderness
Cardiovascular: Heart: irregular, murmur
Pulses: dorsalis pedis 2+ bilaterally
Respiratory: Respiratory Effort/Chest Expansion: normal ������ Auscultation: Clear to auscultation bilaterally
Gastrointestinal: abdomen not tender, no distension, normal abdominal bowel sounds
Genitourinary: Benton
Extremities: Edema: None Cyanosis: None Trophic changes: yes
Neurology Exam:
Orientation: Alert, Oriented to self, Time, Place
Memory: Impaired
Higher cortical function
Repetition: Impaired
Comprehension: Slow to process
Two step command: Slow to process
Naming: Intact
Cranial Nerves:
�� CNII: Pupillary light reflex: Intact��� Visual Field: Intact
�� CN III, IV, : Extraocular muscles: Intact
�� CN V: Facial Sensation at Forehead: Intact, Maxilla: Intact, Mandible: Intact
�� CN VII: Facial movement: weakness right
�� CN VIII: Hearing: Normal
�� CN IX/X: Speech & swallow: husky, mild slur, Position of Uvula: Midline
�� CN XI: Shoulder shrug: Symmetric
�� CN XII: Tongue protrusion: Midline
Sensory:
�� Light touch: Intact in bilateral upper and lower extremities
�
Reflexes:
�� Biceps: 1+ bilaterally
�� Brachioradialis: 1++ bilaterally
�� Triceps: 1+ bilaterally
�� Patellar: 1+ bilaterally
�� Achilles: absent
�� Babinski: Down going bilaterally
�� Clonus: None
�� Deyanira: + on right
Cerebellar: Dysmetria/Ataxia: Right>left with nose finger coordination
Musculoskeletal:
Motor: (Manual muscle scale 0-5)
Muscle SA EF WE EE FF FA HF KE DF EHL PF
Right� 5 4 4 5 5 5 5 5 5 5 5
Left 5 5 5 5 5 5 5 5 5 5 5
4/5 right handgrip
Tone: Normal in all extremities
Range of Motion: Passively within normal limits in all extremities
Lab Results
Labs
WBC 4.3 10^3/uL (4.8-10.8) L 05/22/23 05:55
RBC 4.45 10^6/uL (4.20-5.40) 05/22/23 05:55
Hgb 13.6 g/dL (12.0-16.0) 05/22/23 05:55
Hct 40.1 % (37.0-47.0) 05/22/23 05:55
MCV 90.1 fL (81.0-99.0) 05/22/23 05:55
MCH 30.6 pg (27.0-31.0) 05/22/23 05:55
MCHC 33.9 g/dL (33.0-37.0) 05/22/23 05:55
RDW 14.7 % (11.5-14.5) H 05/22/23 05:55
Plt Count 261 10^3/uL (130-400) 05/22/23 05:55
MPV 10.0 fL (7.4-10.4) 05/22/23 05:55
Abs Immat Gran (auto) 0.0 10^3/uL (0-0.05) 05/20/23 14:34
Absolute Neuts (auto) 3.0 10^3/uL (1.4-6.5) 05/20/23 14:34
Absolute Lymphs (auto) 1.3 10^3/uL (1.2-3.4) 05/20/23 14:34
Absolute Monos (auto) 0.5 10^3/uL (0.1-0.6) 05/20/23 14:34
Absolute Eos (auto) 0.1 10^3/uL (0-0.7) 05/20/23 14:34
Absolute Basos (auto) 0.0 10^3/uL (0-0.2) 05/20/23 14:34
Immature Gran % 0.2 % (0-0.5) 05/20/23 14:34
Neutrophils % 61.0 % (42.2-75.2) 05/20/23 14:34
Lymphocytes % 27.0 % (20.5-51.1) 05/20/23 14:34
Monocytes % 9.8 % (1.7-9.3) H 05/20/23 14:34
Eosinophils % 1.2 % (0-6) 05/20/23 14:34
Basophils % 0.8 % (0-2) 05/20/23 14:34
Nucleated RBC % 0 % 05/20/23 14:34
PT 13.2 Sec (11.4-14.6) 05/20/23 14:34
INR 1.00 05/20/23 14:34
APTT 32.6 Sec (23.4-35.0) 05/20/23 14:34
Sodium 131 mmol/L (135-145) L 05/22/23 05:55
Potassium 4.5 mmol/L (3.5-5.1) 05/22/23 05:55
Chloride 101 mmol/L (98-107) 05/22/23 05:55
Carbon Dioxide 26 mmol/L (22-30) 05/22/23 05:55
BUN 13 mg/dl (7-17) 05/22/23 05:55
Creatinine 0.8 mg/dL (0.6-1.0) 05/22/23 05:55
Estimated Creat Clear 39 ml/min 05/22/23 05:55
eGFR > 60.00 05/22/23 05:55
Glucose 82 mg/dl (70-99) 05/22/23 05:55
Hemoglobin A1c 5.9 % (4.0-5.6) H 05/20/23 14:34
Calcium 9.0 mg/dl (8.4-10.2) 05/22/23 05:55
Magnesium 2.1 mg/dl (1.6-2.3) 05/22/23 05:55
Ferritin 84.8 ng/ml (11.1-264.0) 05/20/23 14:34
Total Bilirubin 1.6 mg/dl (0.2-1.3) H 05/20/23 14:34
AST 38 U/L (14-36) H 05/20/23 14:34
ALT 34 U/L (0-35) 05/20/23 14:34
Alkaline Phosphatase 168 U/L (38-126) H 05/20/23 14:34
Troponin I < 0.012 ng/ml 05/20/23 14:34
Total Protein 8.2 g/dl (6.3-8.2) 05/20/23 14:34
Albumin 4.5 g/dl (3.5-5.0) 05/20/23 14:34
Triglycerides 84 mg/dl (10-149) 05/21/23 06:02
Total Cholesterol 252 mg/dl (50-199) H 05/21/23 06:02
LDL Cholesterol, Calc 144 mg/dl 05/21/23 06:02
VLDL Cholesterol, Calc 16 mg/dl (0-30) 05/21/23 06:02
HDL Cholesterol 92 mg/dl 05/21/23 06:02
Vitamin B12 494 pg/ml (239-931) 05/20/23 14:34
Folate 11.3 ng/ml (2.76-20) 05/20/23 14:34
TSH (Reflex) 1.99 uIU/ml (0.47-4.68) 05/20/23 14:34
Urine Color Straw 05/20/23 16:13
Urine Clarity Clear (Clear) 05/20/23 16:13
Urine pH 7.0 (5.0-9.0) 05/20/23 16:13
Ur Specific Roscoe 1.010 (<1.030) 05/20/23 16:13
Urine Ketones Negative (Negative) 05/20/23 16:13
Urine Occult Blood Negative (Negative) 05/20/23 16:13
Ur Occult Blood Reflex Negative (Negative) 05/20/23 14:55
Urine Nitrite Negative (Negative) 05/20/23 16:13
Urine Nitrite (Reflex) Positive (Negative) A 05/20/23 14:55
Urine Bilirubin Negative (Negative) 05/20/23 16:13
Urine Urobilinogen Negative (Neg - 1+) 05/20/23 16:13
Ur Leukocyte Esterase 2+ (Negative) A 05/20/23 16:13
Leukocyte Esterase Rfl 2+ (Negative) A 05/20/23 14:55
Urine RBC 0-2 /HPF (0-2) 05/20/23 16:13
Urine WBC 30-40 /HPF (0-5) A 05/20/23 16:13
Urine WBC (Reflex) 3-5 /HPF (0-5) 05/20/23 14:55
Ur Squamous Epith Cells 0-2 /LPF (Few) 05/20/23 16:13
Amorphous Crystals Seen 05/20/23 14:55
Urine Bacteria Few (Negative) A 05/20/23 16:13
Urine Bacteria (Reflex) Moderate (Negative) A 05/20/23 14:55
Urine Glucose Negative (Negative) 05/20/23 16:13
Urine Albumin Negative (Neg - Trace) 05/20/23 16:13
Urine Albumin (Reflex) Trace (Neg - Trace) 05/20/23 14:55
POC Glucose 80 mg/dl (70-99) 05/20/23 14:39
�
Diagnostic Results: as per HPI
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
slurred speech, dysarthria, right facial drooping and markedly hypertensive. MRI of brain with small acute infarct involving the posterior margin of the left external capsule. Left occipital old/remote infarct
Plan
PT/OT to increase independence with ADLs, improve balance, coordination, endurance, strength, mobility, community reintegration, decreased burden of care on others and family education.
CVA: MRI of brain with small acute infarct involving the posterior margin of the left external capsule. Left occipital old/remote infarct. Small chronic right thalamic lacunar infarct. Secondary prophylaxis with aspirin, statin, and blood pressure
control (SBP less than 180 and diastolic less than 100 to participate with therapy for ischemic stroke). Continue to monitor neurologic status.
Dysphagia: speech evaluation, oral care protocol, aspiration precautions.�Video swallow with silent aspiration for thin, nnectar barium by spoon and by cup. Silent aspiration with secondary swallow for honey consistency barium by spoon.VSE cleared
for pureed with very thick liquid, with supervised feeding. Advance diet as tolerated.
Dysarthria: speech evaluation.
HTN: Losartan 100 daily, IV hydralazine as needed. monitor closely
HLD: Atorvastatin 40 every afternoon
Persistent atrial fibrillation:�Not on anticoagulation due to Von Willebrand disease. Continue Lopressor 12.5 twice daily rate control��������������������������������������
Echo: unrevealing: EF 60-65%.�Moderate mitral regurgitation.
COPD: DuoNeb 3 mL every 4 hours as needed
Psych: Psychology consult.� Monitor mood,
Skin: hypertrophic lichen planus .monitor for pressure sores/rashes/lesions.
Pain: acetaminophen
FEN: see dysphagia
Bowel: Colace and Senna, MiraLAX
Bladder: Benton. Trial Time void, PVRs, PRN straight cath .
GI Prophylaxis: Prevacid 15 daily
DVT Prophylaxis: Mechanical and aspirin
Pulmonary: Incentive spirometry
Safety: Continue to reinforce assistance with all transfers.
Code Status:� Full code
Dispo (date/plan/equipment needs): Home with family care.� Social history reviewed.
Summary of recommendations:
- Discharge Destination: Acute inpatient rehabilitation for PT/OT to increase independence with ADLs, improve balance, coordination, endurance, strength, mobility, community reintegration Once patient's ongoing cardiac issues have been addressed and
cleared from a cardiac stand
CVA: MRI of brain with small acute infarct involving the posterior margin of the left external capsule. Left occipital old/remote infarct. Small chronic right thalamic lacunar infarct. Secondary prophylaxis with aspirin, statin, and blood pressure
control (SBP less than 180 and diastolic less than 100 to participate with therapy for ischemic stroke). Continue to monitor neurologic status.
Dysphagia: speech evaluation, oral care protocol, aspiration precautions.�Video swallow with silent aspiration for thin, nnectar barium by spoon and by cup. Silent aspiration with secondary swallow for honey consistency barium by spoon.VSE cleared
for pureed with very thick liquid, with supervised feeding. Advance diet as tolerated.
Dysarthria: speech evaluation. Video swallow with silent aspiration for then, nectar barium by spoon and by cup. Silent aspiration with secondary swallow for honey consistency barium by spoon.VSE cleared for pureed with very thick liquid, with
supervised feeding
Persistent atrial fibrillation:�Not on anticoagulation due to Von Willebrand's disease. Continue Lopressor 12.5 twice daily for rate control. Neuro/Heme/Card on board, d/w specialists, the decision is to pursue Watchman for her persistent A fib and
likely start DAPT AFTER procedure. No DAPT or OAC before procedure due to high risk of bleeding in setting of Von Willebrand disease.
HTN: Losartan 100 daily, IV hydralazine as needed monitor closely. IV medication would need to be converted to p.o. prior to transfer SBP less than 180 and diastolic less than 100 for 24 hours prior to transfer to rehab
DVT Prophylaxis: Mechanical and aspirin
Pulmonary: Incentive spirometry
Bladder: Chronic Benton. Trial Time void, PVRs, PRN straight cath .
Thank you for allowing me to care for your patient. Please contact me with any questions or concerns.
This note was dictated using a voice recognition system. Please excuse any typographical errors from trimming operator. If you believe there are any discrepancies, please notify our office.

Documented by User: Ray Atwood MD 05/22/23 21:38
Consultation - Medical
-
Referring Provider: Yuni Phillips
Chief Complaint: CVA
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
[facility] [facility] on 05/20/2023 with slurred speech, dysarthria, right facial drooping and markedly hypertensive. These symptoms were noted by staff at [facility] where she resides. She may not have been compliant with aspirin 81 mg daily at home.
MRI of brain with small acute infarct involving the posterior margin of the left external capsule extending towards the periventricular white matter camara radiata at the level of the body of left lateral ventricle. Moderate chronic microvascular
white matter ischemic change. Left occipital old/remote infarct. Small chronic right thalamic lacunar infarct.
Neurology felt high likelihood the infarct is due to atrial fibrillation, other possibility is due to small vessel disease with history of hypertension. Patient may be candidate for Watchman device which would help with protection against
cardioembolic stroke given the high risks of therapeutic anticoagulation in the setting of von Willebrand's disease. Agreed with proceeding with a cardiology evaluation.
Per cardiology, patient could be considered for watchman however short-term anticoagulation is usually necessary periprocedurally. Watchman coordinator has been notified. Patient will be set up for follow-up with consultation with the watchman
implanter which will be scheduled.
Per hematology, type I von Willebrand's was evaluated and diagnosed in [place] with no records. If stroke felt to be embolic CVA would favor a Watchman procedure with dual antiplatelet therapy for 45 days posttreatment over long-term anticoagulation
with dual antiplatelet therapy or long-term anticoagulation with Eliquis.
-Neuro/Heme/Card on board, d/w specialists, the decision is to pursue Watchman for her persistent A fib and likely start DAPT AFTER procedure. No DAPT or OAC before procedure due to high risk of bleeding in setting of Von Willebrand disease.
Video swallow with silent aspiration for then, nectar barium by spoon and by cup. Silent aspiration with secondary swallow for honey consistency barium by spoon.
Past Medical History: Dementia, COPD-lifelong nonsmoker, RA, Moderate MR by echo 05/21/2023, chronic Hyponatremia, h/o SIADH, Hypertension, GERD,anemia, persistent atrial fibrillation not on anticoagulation, von Willebrand's disease, prior infarct on
MRI
Procedure History: T&A, D&C x3, Mohs and radiation to LLE
Family History: Hypertension, Mother- CVA age 86. Brother- Parkinson disease.
Social History:
Functional Level Premorbidly: Independent with rolling walker. Get meals and assistance with showers, meds and meals from personal care section of [facility]
Functional Level Currently: Supine to sit�min assist, supervision with cues needed for midline posture due to slight right lean. Patient aware and able to self-correct, sit to stand�mod assist, stand to sit�mod assist, ambulate 15 feet x 1 with
rolling walker and mod assist, assist of 2 for lift off and balance. Static supported standing�mod assist due to right lean,Can stand with moderate support of 1 person, grooming�mod assist, toileting�mod to max assist, lower extremity self-care�mod
assist,
Tobacco: Non-smoker
Alcohol: Daily scotch 1 glass
Drug use: Denies
Lives with: [facility] personal care section-alone
24-hour assistance available: No
Number of floors: 0
# steps to enter: 0
# steps to second floor: 0
Potential First floor set up:yes
Driving: yes
Occupation: Retired
�
Allergies:
Allergy/AdvReac Type Severity Reaction Status Date / Time
amiodarone Allergy Unknown Verified 05/20/23 14:39
amlodipine Allergy Unknown Verified 05/20/23 14:39
desmopressin Allergy Dehydration Verified 05/20/23 14:39
diltiazem Allergy Unknown Verified 05/20/23 14:39
doxycycline Allergy Unknown Verified 05/20/23 14:39
furosemide Allergy Unknown Verified 05/20/23 14:39
hydrochlorothiazide Allergy DEHYDRATION Verified 05/20/23 14:39
infliximab Allergy flushing Verified 05/20/23 14:39
and
breathing
problems
levofloxacin Allergy numbness Verified 05/20/23 14:39
sulfamethoxazole Allergy Unknown Verified 05/20/23 14:39
Review of Systems:
Constitutional: (x) abNormal _ fatigue
Eye: (x) Normal _
Ear/Nose/Throat: (x) Normal _
Respiratory: (x) Normal _
Cardiovascular: (x) persistent A-fib, hypertension
Gastrointestinal: (x) Normal _
Genitourinary: (x) Normal _
Musculoskeletal: (x) Normal _
Integumentary: (x) Lichen planus
Neurologic: (x) CVA
Psychiatric: (x) Normal _
Endocrine: (x) Normal _
Hematologic/Lymphatic: (x) Normal _
Allergic/Immunologic: (x) Normal _
Medications:
Active Current Visit Medication List
Category Date Time Status
Acetaminophen [Tylenol/Feverall] Med 05/20/23 16:42 Active
650 mg RECTAL Q4HPRN PRN
Acetaminophen [Tylenol] Med 05/20/23 16:42 Active
1,000 mg PO Q8
Acetaminophen [Tylenol] Med 05/20/23 16:42 Active
650 mg PO Q4HPRN PRN
Aspirin Low Dose EC [Aspir Low (Enteric Coated)] Med 05/20/23 17:00 Active
81 mg PO DAILY
Atorvastatin [Lipitor] Med 05/21/23 18:00 Active
40 mg PO QPM
Docusate Sodium [Colace] Med 05/21/23 08:00 Active
200 mg PO DAILY
Flush (0.9% Sodium Chloride) [Flush (Nss)] Med 05/20/23 17:00 Active
See Dose Instructions IV PER PROTOCOL
HydrALAZINE [Apresoline] Med 05/20/23 15:43 Active
10 mg IV Q4HPRN PRN
Ipratropium/Albuterol Sulfate [Duoneb] Med 05/20/23 23:17 Active
3 ml INH R Q4HPRN PRN
Lansoprazole [Prevacid] Med 05/21/23 13:30 Active
15 mg PO DAILY
Losartan [Cozaar] Med 05/21/23 08:00 Active
100 mg PO DAILY
Metoprolol [Lopressor] Med 05/21/23 20:00 Active
12.5 mg PO BID
Polyethylene Glycol Powder [Miralax] Med 05/21/23 08:00 Active
17 grams PO DAILY
Sennosides [Senokot] Med 05/20/23 20:00 Active
8.6 mg PO DAILY@1999
Vitals:
Temp Pulse Resp BP Pulse Ox
98.0 F 82 18 120/79 96
05/22/23 11:00 05/22/23 11:00 05/22/23 11:00 05/22/23 11:00 05/22/23 11:00
Height 5 ft 2 in
Actual Weight 51.71 kg
Body Mass Index (BMI) 20.9
Physical Exam:
General Appearance/Observation: Well-developed, well-nourished female in no apparent distress.
Pain/Comfort Assessment: Denies
Mood/Affect: Appropriate
Integumentary/Operative Site:
�� Pressure Ulcer Evaluation: absent over heels. Very dry, scaly skin bottom of feet and legs
�� Other Type of Wound: healing Scabs on lower extremities, more on left
Eyes: Conjunctiva/Lids: normal ��� Pupils: pupils equal round and reactive to light and Accommodation
Ears/Nose/Throat: oral mucosa moist,� throat clear.������������ Lips/Teeth/Gums: normal
Neck: No muscle spasm or tenderness
Cardiovascular: Heart: irregular, murmur
Pulses: dorsalis pedis 2+ bilaterally
Respiratory: Respiratory Effort/Chest Expansion: normal ������ Auscultation: Clear to auscultation bilaterally
Gastrointestinal: abdomen not tender, no distension, normal abdominal bowel sounds
Genitourinary: Benton with mildly cloudy urine with sediment.
Extremities: Edema: mild both legs Cyanosis: None Trophic changes: yes
Neurology Exam:
Orientation: Alert, Oriented to self, Time, Place
Memory: Impaired
Higher cortical function
Repetition: Impaired
Comprehension: Slow to process
Two step command: Slow to process
Naming: Intact
Cranial Nerves:
�� CNII: Pupillary light reflex: Intact��� Visual Field: Intact
�� CN III, IV, : Extraocular muscles: Intact
�� CN V: Facial Sensation at Forehead: Intact, Maxilla: Intact, Mandible: Intact
�� CN VII: Facial movement: weakness right
�� CN VIII: Hearing: Normal
�� CN IX/X: Speech & swallow: dysarthria, coarse Position of Uvula: Midline
�� CN XI: Shoulder shrug: Symmetric
�� CN XII: Tongue protrusion: Midline
Sensory:
�� Light touch: Intact in bilateral upper and lower extremities
�
Reflexes:
�� Biceps: 2+ bilaterally
�� Brachioradialis: 2+ bilaterally
�� Triceps: 2+ bilaterally
�� Patellar: 2+ bilaterally
�� Achilles: absent
�� Babinski: Down going bilaterally
�� Clonus: None
�� Deyanira: + on right
Cerebellar: Dysmetria/Ataxia: Right>left with nose finger coordination
Musculoskeletal:
Motor: (Manual muscle scale 0-5)
Muscle SA EF WE EE FF FA HF KE DF EHL PF
Right� 4 4 4 4 4 4 4 4 4 4 4
Left 5 5 5 5 5 5 5 5 5 5 5
4/5 right handgrip
Tone: Normal in all extremities
Range of Motion: Passively within normal limits in all extremities
Lab Results
Labs
WBC 4.3 10^3/uL (4.8-10.8) L 05/22/23 05:55
RBC 4.45 10^6/uL (4.20-5.40) 05/22/23 05:55
Hgb 13.6 g/dL (12.0-16.0) 05/22/23 05:55
Hct 40.1 % (37.0-47.0) 05/22/23 05:55
MCV 90.1 fL (81.0-99.0) 05/22/23 05:55
MCH 30.6 pg (27.0-31.0) 05/22/23 05:55
MCHC 33.9 g/dL (33.0-37.0) 05/22/23 05:55
RDW 14.7 % (11.5-14.5) H 05/22/23 05:55
Plt Count 261 10^3/uL (130-400) 05/22/23 05:55
MPV 10.0 fL (7.4-10.4) 05/22/23 05:55
Abs Immat Gran (auto) 0.0 10^3/uL (0-0.05) 05/20/23 14:34
Absolute Neuts (auto) 3.0 10^3/uL (1.4-6.5) 05/20/23 14:34
Absolute Lymphs (auto) 1.3 10^3/uL (1.2-3.4) 05/20/23 14:34
Absolute Monos (auto) 0.5 10^3/uL (0.1-0.6) 05/20/23 14:34
Absolute Eos (auto) 0.1 10^3/uL (0-0.7) 05/20/23 14:34
Absolute Basos (auto) 0.0 10^3/uL (0-0.2) 05/20/23 14:34
Immature Gran % 0.2 % (0-0.5) 05/20/23 14:34
Neutrophils % 61.0 % (42.2-75.2) 05/20/23 14:34
Lymphocytes % 27.0 % (20.5-51.1) 05/20/23 14:34
Monocytes % 9.8 % (1.7-9.3) H 05/20/23 14:34
Eosinophils % 1.2 % (0-6) 05/20/23 14:34
Basophils % 0.8 % (0-2) 05/20/23 14:34
Nucleated RBC % 0 % 05/20/23 14:34
PT 13.2 Sec (11.4-14.6) 05/20/23 14:34
INR 1.00 05/20/23 14:34
APTT 32.6 Sec (23.4-35.0) 05/20/23 14:34
Sodium 131 mmol/L (135-145) L 05/22/23 05:55
Potassium 4.5 mmol/L (3.5-5.1) 05/22/23 05:55
Chloride 101 mmol/L (98-107) 05/22/23 05:55
Carbon Dioxide 26 mmol/L (22-30) 05/22/23 05:55
BUN 13 mg/dl (7-17) 05/22/23 05:55
Creatinine 0.8 mg/dL (0.6-1.0) 05/22/23 05:55
Estimated Creat Clear 39 ml/min 05/22/23 05:55
eGFR > 60.00 05/22/23 05:55
Glucose 82 mg/dl (70-99) 05/22/23 05:55
Hemoglobin A1c 5.9 % (4.0-5.6) H 05/20/23 14:34
Calcium 9.0 mg/dl (8.4-10.2) 05/22/23 05:55
Magnesium 2.1 mg/dl (1.6-2.3) 05/22/23 05:55
Ferritin 84.8 ng/ml (11.1-264.0) 05/20/23 14:34
Total Bilirubin 1.6 mg/dl (0.2-1.3) H 05/20/23 14:34
AST 38 U/L (14-36) H 05/20/23 14:34
ALT 34 U/L (0-35) 05/20/23 14:34
Alkaline Phosphatase 168 U/L (38-126) H 05/20/23 14:34
Troponin I < 0.012 ng/ml 05/20/23 14:34
Total Protein 8.2 g/dl (6.3-8.2) 05/20/23 14:34
Albumin 4.5 g/dl (3.5-5.0) 05/20/23 14:34
Triglycerides 84 mg/dl (10-149) 05/21/23 06:02
Total Cholesterol 252 mg/dl (50-199) H 05/21/23 06:02
LDL Cholesterol, Calc 144 mg/dl 05/21/23 06:02
VLDL Cholesterol, Calc 16 mg/dl (0-30) 05/21/23 06:02
HDL Cholesterol 92 mg/dl 05/21/23 06:02
Vitamin B12 494 pg/ml (239-931) 05/20/23 14:34
Folate 11.3 ng/ml (2.76-20) 05/20/23 14:34
TSH (Reflex) 1.99 uIU/ml (0.47-4.68) 05/20/23 14:34
Urine Color Straw 05/20/23 16:13
Urine Clarity Clear (Clear) 05/20/23 16:13
Urine pH 7.0 (5.0-9.0) 05/20/23 16:13
Ur Specific [place] 1.010 (<1.030) 05/20/23 16:13
Urine Ketones Negative (Negative) 05/20/23 16:13
Urine Occult Blood Negative (Negative) 05/20/23 16:13
Ur Occult Blood Reflex Negative (Negative) 05/20/23 14:55
Urine Nitrite Negative (Negative) 05/20/23 16:13
Urine Nitrite (Reflex) Positive (Negative) A 05/20/23 14:55
Urine Bilirubin Negative (Negative) 05/20/23 16:13
Urine Urobilinogen Negative (Neg - 1+) 05/20/23 16:13
Ur Leukocyte Esterase 2+ (Negative) A 05/20/23 16:13
Leukocyte Esterase Rfl 2+ (Negative) A 05/20/23 14:55
Urine RBC 0-2 /HPF (0-2) 05/20/23 16:13
Urine WBC 30-40 /HPF (0-5) A 05/20/23 16:13
Urine WBC (Reflex) 3-5 /HPF (0-5) 05/20/23 14:55
Ur Squamous Epith Cells 0-2 /LPF (Few) 05/20/23 16:13
Amorphous Crystals Seen 05/20/23 14:55
Urine Bacteria Few (Negative) A 05/20/23 16:13
Urine Bacteria (Reflex) Moderate (Negative) A 05/20/23 14:55
Urine Glucose Negative (Negative) 05/20/23 16:13
Urine Albumin Negative (Neg - Trace) 05/20/23 16:13
Urine Albumin (Reflex) Trace (Neg - Trace) 05/20/23 14:55
POC Glucose 80 mg/dl (70-99) 05/20/23 14:39
�
Diagnostic Results: as per HPI
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
slurred speech, dysarthria, right facial drooping and markedly hypertensive. MRI of brain with small acute infarct involving the posterior margin of the left external capsule. Left occipital old/remote infarct
Plan
PT/OT to increase independence with ADLs, improve balance, coordination, endurance, strength, mobility, community reintegration, decreased burden of care on others and family education.
CVA: MRI of brain with small acute infarct involving the posterior margin of the left external capsule. Left occipital old/remote infarct. Small chronic right thalamic lacunar infarct. Secondary prophylaxis with aspirin, statin, and blood pressure
control (SBP less than 180 and diastolic less than 100 to participate with therapy for ischemic stroke). Continue to monitor neurologic status.
Dysphagia: speech evaluation, oral care protocol, aspiration precautions.�Video swallow with silent aspiration for thin, nnectar barium by spoon and by cup. Silent aspiration with secondary swallow for honey consistency barium by spoon.VSE cleared
for pureed with very thick liquid, with supervised feeding. Advance diet as tolerated.
Dysarthria: speech evaluation.
HTN: Losartan 100 daily, IV hydralazine as needed. monitor closely
HLD: Atorvastatin 40 every afternoon
Persistent atrial fibrillation:�Not on anticoagulation due to Von Willebrand disease. Continue Lopressor 12.5 twice daily rate control��������������������������������������
Echo: unrevealing: EF 60-65%.�Moderate mitral regurgitation.
COPD: DuoNeb 3 mL every 4 hours as needed
Psych: Psychology consult.� Monitor mood,
Skin: hypertrophic lichen planus .monitor for pressure sores/rashes/lesions.
Pain: acetaminophen
FEN: see dysphagia
Bowel: Colace and Senna, MiraLAX
Bladder: Benton. Trial Time void, PVRs, PRN straight cath .
GI Prophylaxis: Prevacid 15 daily
DVT Prophylaxis: Mechanical and aspirin
Pulmonary: Incentive spirometry
Safety: Continue to reinforce assistance with all transfers.
Code Status:� Full code
Dispo (date/plan/equipment needs): Home with family care.� Social history reviewed.
Attending Statement:
I saw and examined the patient today.� Reviewed care plan with patient, therapy, nursing, and physician historian research assistant.� I agree with the above subjective and physical exam, and plan as documented.
Summary of recommendations:
- Discharge Destination: Acute inpatient rehabilitation for PT/OT to increase independence with ADLs, improve balance, coordination, endurance, strength, mobility, community reintegration Once patient's ongoing cardiac issues have been addressed and
cleared from a cardiac stand
CVA: MRI of brain with small acute infarct involving the posterior margin of the left external capsule. Left occipital old/remote infarct. Small chronic right thalamic lacunar infarct. Secondary prophylaxis with aspirin, statin, and blood pressure
control (SBP less than 180 and diastolic less than 100 to participate with therapy for ischemic stroke). Continue to monitor neurologic status.
Dysphagia: speech evaluation, oral care protocol, aspiration precautions.�Video swallow with silent aspiration for thin, nnectar barium by spoon and by cup. Silent aspiration with secondary swallow for honey consistency barium by spoon.VSE cleared
for pureed with very thick liquid, with supervised feeding. Advance diet as tolerated.
Dysarthria: speech evaluation.
Persistent atrial fibrillation:�Not on anticoagulation due to Von Willebrand's disease. Continue Lopressor 12.5 twice daily for rate control. Neuro/Heme/Card on board, d/w specialists, the decision is to pursue Watchman for her persistent A fib and
likely start DAPT AFTER procedure. No DAPT or OAC before procedure due to high risk of bleeding in setting of Von Willebrand disease.
HTN: Losartan 100 daily, IV hydralazine as needed monitor closely. IV medication would need to be converted to p.o. prior to transfer SBP less than 180 and diastolic less than 100 for 24 hours prior to transfer to rehab
DVT Prophylaxis: Mechanical and aspirin
Pulmonary: Incentive spirometry
Bladder: Chronic Benton. Trial Time void, PVRs, PRN straight cath .
Thank you for allowing me to care for your patient. Please contact me with any questions or concerns.
This note was dictated using a voice recognition system. Please excuse any typographical errors from trimming operator. If you believe there are any discrepancies, please notify our office.
--- NOTE | 2023-05-21 14:23 | CON.ONC ---
Impression
Impression
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
Chronic atrial fibrillation
Mild Alzheimer dementia
COPD
Rheumatoid arthritis
Plan
Plan
Patient and daughter report very little bruising or bleeding in recent years
Apparent type I von Willebrand's evaluated and diagnosed in [place] with no records
If stroke felt to be embolic CVA would favor Watchman procedure with dual antiplatelet therapy for 45 days posttreatment over long-term anticoagulation with dual antiplatelet therapy or long-term anticoagulation with Eliquis
Consult cardiology for consideration
Patient History
History of Present Illness
HPI: 88-year-old female PMH Alzheimer's dementia, Von Willebrand disease type 1, Paroxysmal atrial fibrillation, SIADH, Chronic lower extremity hypertrophic lichen planus, Essential hypertension, history of alcohol use disorder, COPD, Rheumatoid
arthritis; p/w slurred speech and facial droop. Patient reportedly felt dizzy in the morning. At around 1:10 PM, patient called NH staff because she was not feeling right, and was noted to have slurred speech and facial droop. EMS was called.
Patient's blood pressure reportedly very elevated at the 200s over 120s. Patient is not on anticoagulant medication and just takes a daily aspirin. No recent trauma. Patient is a poor historian, but currently has no acute new complaints. I did
speak with the patient's daughter who gave me an accurate depiction of her memory loss which appears quite mild
Past-Medical/Surgical History
Past Medical History
Past Medical History: Cancer (Squamous cell CA 2012 right/left legs), COPD (PNA/ lung mass 09/16/2014), GERD, HTN, Valvular Disease, Psychiatric (Anxiety) and Other (Hyponatremia, SIADH, [place])
Past Surgical History: Gynocological (D&C), Tonsilectomy and Other (Bilateral cataract , Mohs surgery 2012 left/right leg squamous cell CA)
Social History
Tobacco: Non-smoker
Alcohol: Occasional
Drug: None
Personal: Single
Living: Alone ([facility])
Employment: Retired
Family History
Family History: Not pertinent
Patient Medication
Medication Instructions Recorded Confirmed Last Taken Type
metoprolol succinate 25 mg 25 mg PO DAILY@1999 Blood pressure 08/06/16 05/20/23 10/23/21 10:00 History
tablet,extended release 24 hr
losartan 100 mg tablet 100 mg PO DAILY Blood pressure 10/24/21 05/20/23 10/23/21 10:00 History
acetaminophen 500 mg tablet 1,000 mg PO Q8H Pain 05/20/23 05/20/23 Unknown History
(Tylenol Extra Strength)
aspirin 81 mg tablet,delayed 81 mg PO DAILY Blood Clot 05/20/23 05/20/23 Unknown History
release Prevention/Tx
cholecalciferol (vitamin D3) 50 100 mcg PO SUMOWEFR@0800 Supplement 05/20/23 05/20/23 Unknown History
mcg (2,000 unit) capsule (Vitamin
D3)
cholecalciferol (vitamin D3) 50 50 mcg PO TUTHSA@0800 Supplement 05/20/23 05/20/23 Unknown History
mcg (2,000 unit) tablet (Vitamin
D3)
docusate sodium 100 mg capsule 200 mg PO DAILY Constipation 05/20/23 05/20/23 Unknown History
polyethylene glycol 3350 17 gram 17 grams PO DAILY Constipation 05/20/23 05/20/23 Unknown History
oral powder packet
sennosides 8.6 mg tablet (Senokot) 8.6 mg PO DAILY@1999 Constipation 05/20/23 05/20/23 Unknown History
Active Medications
Generic Name Dose Route Start Last Admin
Trade Name Freq PRN Reason Stop Dose Admin
Acetaminophen 1,000 mg 05/20/23 16:42 05/21/23 13:06
Acetaminophen 500 Mg Tablet PO 06/17/23 16:41 1,000 mg
Q8 OLIVIA Administration
Acetaminophen 650 mg 05/20/23 16:42
Acetaminophen 650 Mg Rectal Suppository RECTAL 06/17/23 16:41
Q4HPRN PRN
JACKSON, mild pain, or temp >100.4F
Acetaminophen 650 mg 05/20/23 16:42
Acetaminophen 325 Mg Tablet PO 06/17/23 16:41
Q4HPRN PRN
JACKSON, mild pain, or temp >100.4F
Albuterol/Ipratropium 3 ml 05/20/23 23:17 05/20/23 23:38
Ipratropium 0.5/Albuterol 3 Mg (3 Ml Ampul) INH 06/17/23 23:16 3 ml
R Q4HPRN PRN Administration
SOB or wheezing
Protocol
Aspirin 81 mg 05/20/23 17:00 05/21/23 13:06
Aspirin 81 Mg (Enteric Coated) Tablet PO 06/17/23 16:59 81 mg
DAILY OLIVIA Administration
Atorvastatin Calcium 40 mg 05/21/23 18:00
Atorvastatin (Lipitor) 40 Mg Tablet PO 06/18/23 17:59
QPM OLIVIA
Docusate Sodium 200 mg 05/21/23 08:00 05/21/23 13:06
Docusate Sodium 100 Mg Capsule PO 06/18/23 07:59 200 mg
DAILY OLIVIA Administration
Hydralazine HCl 10 mg 05/20/23 15:43 05/21/23 05:50
Hydralazine 20 Mg/Ml Vial IV 06/17/23 15:42 10 mg
Q4HPRN PRN Administration
SBP > 180
Lansoprazole 15 mg 05/21/23 13:30
Lansoprazole 15 Mg Solutab PO 06/18/23 13:29
DAILY OLIVIA
Losartan Potassium 100 mg 05/21/23 08:00 05/21/23 13:06
Losartan 100 Mg Tablet PO 06/18/23 07:59 100 mg
DAILY OLIVIA Administration
Metoprolol Succinate 25 mg 05/20/23 20:00 05/20/23 19:39
Metoprolol 25 Mg Extended Release Tablet PO 06/17/23 19:59 25 mg
DAILY@1999 [facility] Administration
Polyethylene Glycol 17 grams 05/21/23 08:00 05/21/23 13:06
Polyethylene Glycol Powder 17 Grams Packet PO 06/18/23 07:59 Not Given
DAILY OLIVIA
Sennosides 8.6 mg 05/20/23 20:00 05/20/23 19:39
Sennosides (Senokot) 8.6 Mg Tablet PO 06/17/23 19:59 8.6 mg
DAILY@1999 [facility] Administration
Sodium Chloride 0 flush 05/20/23 17:00
Sodium Chloride 0.9% (Flush) Syringe IV 06/17/23 16:59
PER PROTOCOL OLIVIA
Review of Systems
-
Unobtainable from patient
Physical Exam
-
Physical Exam
General: Well Developed, Well Nourished, No Apparent Distress, Comfortable, Conversant, Slurred Speech and Appears Chronically Ill
HEENT: NormoCephalic, Moist mucous membranes and Atraumatic
Respiratory: Clear and Non Labored Respirations; No Accessory Resp Muscle Use
Cardiac: S1/S2 and Regular Rhythm; No Murmur or Rub
GI: Soft, Non Tender, Non Distended and Normal Bowel Sounds; No Organomegaly
Rectal: Deferred by Provider
Genito-urinary: Benton
Musculoskeletal: No Clubbing, No Cyanosis and No Edema
Neuro: Awake and Alert
Psych: Calm
Labs
Lab Results
WBC 4.9 10^3/uL (4.8-10.8) 05/20/23 14:34
RBC 4.74 10^6/uL (4.20-5.40) 05/20/23 14:34
Hgb 14.4 g/dL (12.0-16.0) 05/20/23 14:34
Hct 43.0 % (37.0-47.0) 05/20/23 14:34
MCV 90.7 fL (81.0-99.0) 05/20/23 14:34
MCH 30.4 pg (27.0-31.0) 05/20/23 14:34
MCHC 33.5 g/dL (33.0-37.0) 05/20/23 14:34
RDW 14.6 % (11.5-14.5) H 05/20/23 14:34
Plt Count 306 10^3/uL (130-400) 05/20/23 14:34
MPV 9.9 fL (7.4-10.4) 05/20/23 14:34
Abs Immat Gran (auto) 0.0 10^3/uL (0-0.05) 05/20/23 14:34
Absolute Neuts (auto) 3.0 10^3/uL (1.4-6.5) 05/20/23 14:34
Absolute Lymphs (auto) 1.3 10^3/uL (1.2-3.4) 05/20/23 14:34
Absolute Monos (auto) 0.5 10^3/uL (0.1-0.6) 05/20/23 14:34
Absolute Eos (auto) 0.1 10^3/uL (0-0.7) 05/20/23 14:34
Absolute Basos (auto) 0.0 10^3/uL (0-0.2) 05/20/23 14:34
Immature Gran % 0.2 % (0-0.5) 05/20/23 14:34
Neutrophils % 61.0 % (42.2-75.2) 05/20/23 14:34
Lymphocytes % 27.0 % (20.5-51.1) 05/20/23 14:34
Monocytes % 9.8 % (1.7-9.3) H 05/20/23 14:34
Eosinophils % 1.2 % (0-6) 05/20/23 14:34
Basophils % 0.8 % (0-2) 05/20/23 14:34
Creatinine 0.5 mg/dL (0.6-1.0) L 05/20/23 23:16
Vital Signs
Vital Signs
Temp Pulse Resp BP Pulse Ox
97.9 F 100 18 146/85 96
05/21/23 13:14 05/21/23 13:14 05/21/23 13:14 05/21/23 13:14 05/21/23 13:14
--- NOTE | 2023-05-21 14:35 | PTOTSP ---
Video Swallow Examination
The patient presents with an oral/pharyngeal dysphagia characterized by reduced oral containment, delayed swallow onset, reduced laryngeal vestibular closure and mildly weak tongue base and pharyngeal weakness. Collectively this resulted in silent
aspiration of thin and thick liquids and mild pharyngeal stasis. Esophagus observed with contrast suggesting contents slow to empty.
Recommend
1. IDDSI 4 (pureed) and Extremely thick liquids.
2. Meds crushed in applesauce.
3. 1:1 supervision.
4. Oral Care 3x/daily
5. Upright during and for at least 30 minutes after meals.
6. Aspiration and reflux precautions.
ST will follow and assess tolerance with ice chips/ARHP.
[2023-05-21] MEDS: PLAVIX PO (14:45)
[2023-05-21] MEDS: PREVACID 15 MG PO (15:00)
--- NOTE | 2023-05-21 16:23 | CON.CAR ---
Addendum entered and electronically signed by Von Fay DO 05/21/23 18:20:
I saw and examined the patient.
The Drug Abuse Worker's note was reviewed and I agree with the note.
Comment:
Plan:
Continue rate control strategy for persistent atrial fibrillation.
The patient has not previously been anticoagulated secondary to von Willebrand's disease. Appreciate hematology input.
Patient could be considered for watchman however some short-term anticoagulation is usually necessary periprocedurally.
Watchman coordinator has been notified.
Patient will be set up for follow-up with consultation with the watchman implanter which will be scheduled.
Discussed with daughter at bedside.
Please recall if needed.
Original Note:
Consultation
Consultation Request
Date/Time Consultation Requested: 05/21/23
Date/Time Consultation Performed: 05/21/23
Requesting Provider: Dr. Phillips
Performing Provider: Dr. Fay
Reason for Consultation: Consideration for watchman evaluation, CVA, Afib
Medical History
-
History of Present Illness:
Patient lives at [facility] and was sent to ER on 05/20/2023 with stroke symptoms, cardiology has been consulted for consideration of watchman evaluation. Patient lives in the personal-care section at [facility] and the family describes
that as her meals and medications being taken of by facility staff but that otherwise the patient is fairly independent. The facility staff noticed that she had slurred speech and a right facial droop starting in the afternoon of 05/20/2023 plus she
was markedly hypertensive. She was sent to ER. Patient had a small acute infarct involving the posterior margin of the left external capsule by MRI. Neurology felt that the differential diagnosis included ischemic stroke due to A-fib or
diffuse embolic event given A-fib and the fact that the patient is not chronically anticoagulated due to von Willebrand's disease. The patient was then seen in consultation by heme/onc and per hematology note 'if stroke felt to be embolic CVA would
favor Watchman procedure with dual antiplatelet therapy for 45 days posttreatment over long-term anticoagulation with dual antiplatelet therapy or long-term anticoagulation with Eliquis,' and so cardiology has been asked to see the patient to help
determine if a Watchman procedure using dual antiplatelet therapy without anticoagulation is feasible. The patient was diagnosed with von Willebrand's while living in [place]. She has never been anticoagulated. She tolerates an aspirin 81 mg
daily. The patient and the daughter report very little bruising or bleeding in recent years.
PMH:
Persistent to permanent atrial fibrillation
Not chronically anticoagulated due to history of von Willebrand's disease
von Willebrand's disease
Dementia
COPD
RA
Moderate MR by echo 05/21/2023
COPD-lifelong nonsmoker
chronic Hyponatremia, h/o SIADH
Hypertension
h/o bradycardia
GERD
anemia
Past Medical History
Past Medical History: Other (in HPI)
Past Surgical History: Gynecological (D&C) and Tonsilectomy
Social History
Tobacco: Non-Smoker
Alcohol: None
Drug: None
Living: Assisted Living (personal care at [facility], facility handles meals and meds)
Family History
Family History: Cancer
Allergies / Home Medications
Allergy/AdvReac Type Severity Reaction Status Date / Time
amiodarone Allergy Unknown Verified 05/20/23 14:39
amlodipine Allergy Unknown Verified 05/20/23 14:39
desmopressin Allergy Dehydration Verified 05/20/23 14:39
diltiazem Allergy Unknown Verified 05/20/23 14:39
doxycycline Allergy Unknown Verified 05/20/23 14:39
furosemide Allergy Unknown Verified 05/20/23 14:39
hydrochlorothiazide Allergy DEHYDRATION Verified 05/20/23 14:39
infliximab Allergy flushing Verified 05/20/23 14:39
and
breathing
problems
levofloxacin Allergy numbness Verified 05/20/23 14:39
sulfamethoxazole Allergy Unknown Verified 05/20/23 14:39
Medication Instructions Recorded Confirmed Type
metoprolol succinate 25 mg 25 mg PO DAILY@1999 Blood pressure 08/06/16 05/20/23 History
tablet,extended release 24 hr
losartan 100 mg tablet 100 mg PO DAILY Blood pressure 10/24/21 05/20/23 History
acetaminophen 500 mg tablet 1,000 mg PO Q8H Pain 05/20/23 05/20/23 History
(Tylenol Extra Strength)
aspirin 81 mg tablet,delayed 81 mg PO DAILY Blood Clot 05/20/23 05/20/23 History
release Prevention/Tx
cholecalciferol (vitamin D3) 50 100 mcg PO SUMOWEFR@0800 Supplement 05/20/23 05/20/23 History
mcg (2,000 unit) capsule (Vitamin
D3)
cholecalciferol (vitamin D3) 50 50 mcg PO TUTHSA@0800 Supplement 05/20/23 05/20/23 History
mcg (2,000 unit) tablet (Vitamin
D3)
docusate sodium 100 mg capsule 200 mg PO DAILY Constipation 05/20/23 05/20/23 History
polyethylene glycol 3350 17 gram 17 grams PO DAILY Constipation 05/20/23 05/20/23 History
oral powder packet
sennosides 8.6 mg tablet (Senokot) 8.6 mg PO DAILY@1999 Constipation 05/20/23 05/20/23 History
Review of Systems
-
History Source: Patient and Family (talked with daughter, son and [id number] at bedside)
All other systems: Negative unless noted
Physical Exam
Vital Signs
Temp Pulse Resp BP Pulse Ox
98.1 F 85 18 146/93 95
05/21/23 15:00 05/21/23 15:00 05/21/23 15:00 05/21/23 15:00 05/21/23 15:00
GEN: NAD. AAO to person, place and situation. She remembers that Dr. Roberson was in earlier today
HEENT: EOMI, MMM
LUNGS: CTA B/L, no wheezes or rales
CV: Irreg irreg, S1/S2, / BSM
ABD: soft, BS+, NT, ND
EXT: No clubbing, cyanosis, lesions or edema B/L
NEURO: Gross non-focal
SKIN: Warm, dry and pink. No rash
Lab Results
05/20/23 14:34
05/20/23 23:16
Troponin I < 0.012 ng/ml 05/20/23 14:34
Impression / Plan
-
PCP: Dr. Rhea Hawkins
Cardiology: Dr. Maryana Sorto, last seen 09/05/21
Assessment:
Admitted with acute stroke left external capsule to 2123
Persistent to permanent atrial fibrillation
Not chronically anticoagulated due to history of von Willebrand's disease
von Willebrand's disease
Dementia
COPD
RA
Moderate MR by echo 05/21/2023
COPD-lifelong nonsmoker
chronic Hyponatremia, h/o SIADH
Hypertension
h/o bradycardia
GERD
anemia
Echo 07/2011 shows EF 60% with mild LVH, mild diastolic dysfunction, mild to moderate mitral regurg
echo 09/22/14:� EF 60-65%, mod MR with mild pulm htn
Echo 05/21/2023: EF 60 to 65%, severely dilated atria, moderate MR, mild aortic regurgitation, moderate TR with PAP 40 to 45 mmHg
Plan:
-Patient lives at [facility] and was sent to ER on 05/20/2023 with stroke symptoms, cardiology has been consulted for consideration of watchman evaluation. Patient lives in the personal-care section at [facility] and the family describes
that as her meals and medications being taken of by facility staff but that otherwise the patient is fairly independent. The facility staff noticed that she had slurred speech and a right facial droop starting in the afternoon of 05/20/2023 plus she
was markedly hypertensive. She was sent to ER. Patient had a small acute infarct involving the posterior margin of the left external capsule by MRI. Neurology felt that the differential diagnosis included ischemic stroke due to A-fib or
diffuse embolic event given A-fib and the fact that the patient is not chronically anticoagulated due to von Willebrand's disease. The patient was then seen in consultation by heme/onc and per hematology note 'if stroke felt to be embolic CVA would
favor Watchman procedure with dual antiplatelet therapy for 45 days posttreatment over long-term anticoagulation with dual antiplatelet therapy or long-term anticoagulation with Eliquis,' and so cardiology has been asked to see the patient to help
determine if a Watchman procedure using dual antiplatelet therapy without anticoagulation is feasible. The patient was diagnosed with von Willebrand's while living in [place]. She has never been anticoagulated. She tolerates an aspirin 81 mg
daily. The patient and the daughter report very little bruising or bleeding in recent years.
-The patient's case was reviewed with the structural heart programmer or analyst/CREDIT CHARGE AUTHORIZER. The biggest obstacle seems to be finding an appropriate post implant regimen�oral anticoagulation versus antiplatelet therapy alone.
-Would not perform additional imaging studies until a post implant regimen can be agreed upon between the hematology and structural heart team.
-Reviewed the Watchman procedure with the patient's family sitting at the bedside. Also reviewed that watchman is an outpatient procedure and that watchman will not be performed prior to the home.
-A-fib is persistent or permanent at this point. The patient is not a candidate for rhythm control strategy due to her inability to take anticoagulation. Her heart rates are controlled with Lopressor 12.5 mg twice daily. She was changed from her
outpatient dose of Toprol XL to Lopressor due to her inability to swallow a full tablet and meds being crushed
--- NOTE | 2023-05-21 16:25 | CM ---
Reviewed chart spoke with PT who stated that patient will need rehab and acute rehab may be appropriate. Spoke with Liat at [facility] who stated that patient is normally at an independent level of functioning. She requested clinicals be faxed
to her. Met with patient and her family to discuss. Patient's family would like referrals faxed to: [facility].
Will fax clinical.
Plan: Case management will continue to follow and assist with discharge planning. Hopeful transfer to rehab post acute care stay.
[2023-05-21] MEDS: TYLENOL PO (17:41)
[2023-05-21] MEDS: LIPITOR 40 MG PO (17:41)
[2023-05-21] MEDS: LOPRESSOR 12.5 MG PO (20:01)
[2023-05-21] MEDS: SENOKOT 8.59999999999999964 MG PO (20:07)
[2023-05-22] VITALS (8 sets, daily range): BP systolic 94–147; BP diastolic 62–94; PULSE 94–100; O2SAT 94; BMI 20.9
[2023-05-22] MEDS: TYLENOL PO (00:14)
[2023-05-22 06:27] LABS: Hematocrit 40.1 % (37.0-47.0); Hemoglobin 13.6 g/dL (12.0-16.0); Mean Corp Hgb Conc. 33.9 g/dL (33.0-37.0); Mean Corpuscular Hgb 30.6 pg (27.0-31.0); Mean Corpuscular Volume 90.1 fL (81.0-99.0); Platelet Count 261 10^3/uL (130-400); Red Blood Cell Count 4.45 10^6/uL (4.20-5.40); Red Cell Dist. Width 14.7 % (11.5-14.5); White Blood Cell Count 4.3 10^3/uL (4.8-10.8)
[2023-05-22 06:43] LABS: Blood Urea Nitrogen 13 mg/dl (7-17); Carbon Dioxide 26 mmol/L (22-30); Chloride 101 mmol/L (98-107); Estimated Creatinine Clearance 39 ml/min; Glucose 82 mg/dl (70-99); Magnesium 2.1 mg/dl (1.6-2.3); Potassium 4.5 mmol/L (3.5-5.1); Sodium 131 mmol/L (135-145); eGFR > 60.00
--- NOTE | 2023-05-22 08:23 | W.PN.NEURO.1 ---
Today's Communication / Plan
-
-Goal normotension
-Neurologic checks and NIH scales
-Video swallow and speech therapy evaluation reviewed, aspiration precautions, modified diet
-PT/OT, speech therapy input appreciated
-Continue aspirin 81 mg daily and Atorvastatin 40 mg daily
-MRI showing ischemic infarct in the left sided white matter of the brain, high likelihood the infarct is due to atrial fibrillation, other possibility it is due to small vessel disease with history of hypertension
---Patient may be candidate for Watchman device which would help with protection against cardioembolic stroke given the high risks of therapeutic anticoagulation in the setting of von Willebrand's disease, agree with proceeding with an evaluation
for this, understanding that after device implantation she would need to be on short term DAPT versus full anticoagulation and then transition to aspirin
-Appreciate hematology and cardiology input
-Neurology follow up 4 weeks post discharge
Will follow as needed call with questions and concerns
Neuro Assessment/Plan
Assessment
88 year old woman with history of atrial fibrillation, Von Willebrand's disease presenting with dysarthria and speech change, severely elevated BP's
May not have been compliant with aspirin 81 mg daily at home
Has not Been on anticoagulation due to von Willebrand's disease
MRI showing ischemic infarct in the left sided white matter of the brain, high likelihood the infarct is due to atrial fibrillation, other possibility it is due to small vessel disease with history of hypertension
Patient may be candidate for Watchman device which would help with protection against cardioembolic stroke given the high risks of therapeutic anticoagulation in the setting of von Willebrand's disease, agree with proceeding with an evaluation for
this, understanding that after device implantation she would need to be on short term DAPT versus full anticoagulation and then transition to aspirin
Mild cognitive problems at baseline, does not seem has had a formal diagnosis of dementia
Lives in [facility] where she handles dressing, eating, bathing, has meals cooked for her and gets some assistance.
Appears mild cognitive impairment at least and perhaps a mild dementia due to either vascular causes versus Alzheimer's
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 No other significant vascular occlusion, aneurysm or dissection.
Cerebral Aneurysm is asymptomatic and with size and patient age and location does not need further following or interventional evaluation
Subjective/Objective
Subjective Data
Date of Service: May 22, 2023
No acute events, some weakness of right hand noted with eating, speech still abnormal, on a modified diet, no complaints of pain, discussed plan with patient and daughter at bedside
Objective Data
Vital Signs
Temp Pulse Resp BP Pulse Ox
98.2 F 91 18 147/94 96
05/22/23 07:00 05/22/23 07:00 05/22/23 07:00 05/22/23 07:00 05/22/23 07:00
Lab Results
05/22/23 05:55
05/22/23 05:55
PT 13.2 Sec (11.4-14.6) 05/20/23 14:34
INR 1.00 05/20/23 14:34
APTT 32.6 Sec (23.4-35.0) 05/20/23 14:34
Sodium 131 mmol/L (135-145) L 05/22/23 05:55
Potassium 4.5 mmol/L (3.5-5.1) 05/22/23 05:55
BUN 13 mg/dl (7-17) 05/22/23 05:55
Glucose 82 mg/dl (70-99) 05/22/23 05:55
Calcium 9.0 mg/dl (8.4-10.2) 05/22/23 05:55
LDL Cholesterol, Calc 144 mg/dl 05/21/23 06:02
Vitamin B12 494 pg/ml (239-931) 05/20/23 14:34
Patient Allergies
amiodarone Allergy (Verified 05/20/23 14:39)
Unknown
amlodipine Allergy (Verified 05/20/23 14:39)
Unknown
desmopressin Allergy (Verified 05/20/23 14:39)
Dehydration
diltiazem Allergy (Verified 05/20/23 14:39)
Unknown
doxycycline Allergy (Verified 05/20/23 14:39)
Unknown
furosemide Allergy (Verified 05/20/23 14:39)
Unknown
hydrochlorothiazide Allergy (Verified 05/20/23 14:39)
DEHYDRATION
infliximab Allergy (Verified 05/20/23 14:39)
flushing and breathing problems
levofloxacin Allergy (Verified 05/20/23 14:39)
numbness
sulfamethoxazole Allergy (Verified 05/20/23 14:39)
Unknown
Review of Systems
-
History Source: Patient
All other systems: Reviewed and negative
Constitutional: No Symptoms
EENT: No Symptoms Reported
Respiratory: No Symptoms
Cardiac: No Symptoms; Negative Chest Pain
Abdomen/GI: No Symptoms
Genitourinary: No Symptoms
Musculoskeletal: No Symptoms
Skin: No Symptoms
Neuro: Weakness and Speech Problem
Endocrine: No Symptoms
Hematologic / Lymphatic: No Symptoms
Allergy / Immunology: No Symptoms
Physical Exam
-
General: No Apparent Distress
Eyes: No Ptosis
HEENT: Normocephalic
Neck: No Bruits Bilaterally
Respiratory: Clear to Auscultation
Cardiac: Regular Rhythm
GI: Normal Bowel Sounds
Skin: Unremarkable
Extremities: No Clubbing
Psych: Unremarkable
Extended Neurological Exam
Attention Span & Concentration: Awake, Alert, Interactive and No Difficulty with 2 Step Request
Memory: Unremarkable
Tremor: Hand Tremor Absent
Involuntary Movement: None
Speech: Expressive Aphasia and Dysarthric
Cranial Nerve II: Left Eye: Pupillary Reactivity Unremarkable and Pupillary Size Unremarkable
Cranial Nerve II: Right Eye: Pupillary Reactivity Unremarkable and Pupillary Size Unremarkable
Cranial Nerves III, IV, : Extraocular Movement: Extraocular Movement Full in all Directions
Muscle Strength, Overall: Other (Right arm drift and 4/5 weakness of arm flexion, weakness of right hand credentialing specialist)
Pronator Drift: Drift in Right Upper Extremity
Deep Tendon Reflexes: Trace Throughout
Touch Sensation: Unremarkable
Coordination: [id number] Testing Unremarkable
Data Reviewed
-
CT-A: Report Reviewed and Image Reviewed
CT Head: Report Reviewed and Image Reviewed
MRI Head: Report Reviewed and Image Reviewed
Echocardiogram: Report Reviewed
[2023-05-22] MEDS: LOPRESSOR 12.5 MG PO ×2 (08:39→20:37)
[2023-05-22] MEDS: ASPIR LOW (ENTERIC COATED) 81 MG PO (08:40)
[2023-05-22] MEDS: COZAAR 100 MG PO (08:40)
[2023-05-22] MEDS: TYLENOL 1000 MG PO ×2 (08:40→15:51)
[2023-05-22] MEDS: COLACE 200 MG PO (08:41)
[2023-05-22] MEDS: PREVACID 15 MG PO (08:41)
[2023-05-22] MEDS: MIRALAX PO (08:42)
--- NOTE | 2023-05-22 10:45 | W.PN.HOSP.TC ---
Today's Communication/Plan
-
see A/P
Assessment / Plan
Assessment / Plan
HPI: 88-year-old female PMH Alzheimer's dementia, Von Willebrand disease type 1, Paroxysmal atrial fibrillation, SIADH, Chronic lower extremity hypertrophic lichen planus, Essential hypertension, history of alcohol use disorder, COPD, Rheumatoid
arthritis; p/w slurred speech and facial droop.�
Patient reportedly felt dizzy in the morning. At around 1:10 PM, patient called NH staff because she was not feeling right, and was noted to have slurred speech and facial droop.�EMS was called.� Patient's blood pressure reportedly very elevated at
the 200s over 120s.� Patient is not on anticoagulant medication and just takes a daily aspirin.� No recent trauma.
Of note, patient is a poor historian, but she is able to inform me that she has numbness in both her hands.
Denies to other symptoms.
A/P:
# slurred speech, facial droop, BL hand numbness L > R, due to acute stroke left external capsule
Admission CT head showed no acute intracranial abnormality.
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 No other significant vascular occlusion, aneurysm or dissection.
Follow up MRI brain noted small acute infarct involving the left external capsule. Moderate chronic microvascular white matter ischemic change. Left occipital old/remote infarct. Small chronic right thalamic lacunar infarct. Atrophy.
LDL 144, started Lipitor 40 mg HS
A1c 5.9%
Echo unrevealing: EF 60-65%.�Moderate mitral regurgitation.
Cont FINGERNAIL TECHNICIAN losartan, Toprol for BP control, added IV hydralazine for SBP > 180
VSE cleared for pureed with very thick liquid, with supervised feeding
Of note, UA largely unrevealing
Benton was exchanged in ED�2/21
Neuro/Heme/Card on board, d/w specialists, the decision is to pursue Watchman for her persistent A fib and likely start DAPT AFTER procedure. No DAPT or OAC before procedure due to high risk of bleeding in setting of Von Willebrand disease.
For now, cont FINGERNAIL TECHNICIAN ASA
PT OT recc Jose, PMR consulted
# Chronic Benton POA
Benton was exchanged in ED�2
UA largely unrevealing, urine Cx with mixed charlotte
# Hyponatremia
Monitor
# Alzheimer's dementia
Pt is AOx2-3, slow to respond to questions asked
# Von Willebrand disease type 1
# Persistent Atrial fibrillation
tele noted persistent A fib
Not on OAC FINGERNAIL TECHNICIAN due to Von Willebrand disease
cont BB changed FINGERNAIL TECHNICIAN Toprol to Lopressor 12.5 BID
# HTN
cont FINGERNAIL TECHNICIAN losartan 100 mg daily
cont BB changed FINGERNAIL TECHNICIAN Toprol to Lopressor 12.5 BID
IV hydralazine PRN
# Chronic lower extremity hypertrophic lichen planus
wound care on board
# COPD
# Rheumatoid arthritis
DVT ppx: SCD
FC
DW daughter at bedside
DW Neuro and Card team
Anticipated Discharge: 24 - 48 hours
Subjective/Interval History
-
Date of Service: May 22, 2023
Objective Data
-
Labs:
Laboratory Results
05/22/23
05:55
WBC 4.3 L
Hgb 13.6
Hct 40.1
Plt Count 261
Sodium 131 L
Potassium 4.5
Chloride 101
Carbon Dioxide 26
BUN 13
Creatinine 0.8
Glucose 82
Calcium 9.0
Vital Signs:
Vital Signs
Temp Pulse Resp BP Pulse Ox
36.8 C 91 18 147/94 96
05/22/23 07:00 05/22/23 07:00 05/22/23 07:00 05/22/23 07:00 05/22/23 08:30
I&O
05/21/23 05/22/23 05/23/23
06:59 06:59 06:59
Intake Total 480 / 480 580 / 580
Output Total 1150 / 1150 800 / 800
Balance -670 / -670 -220 / -220
Review of Systems
-
Neuro: Reports Numbness (hands and feet)
Physical Exam
-
General: Well Developed, No Apparent Distress, Comfortable and Appears Chronically Ill
HEENT: Normocephalic, Atraumatic, Moist Mucous Membranes, Nose Appears Normal and Ears Appear Normal
Respiratory: Clear to Auscultation and Non Labored Respirations; Negative Accessory Resp Muscle Use
Cardiac: Regular Rhythm and S1/S2; Negative Murmur, Rub or Gallop
GI: Soft, Nontender, Nondistended and Normal Bowel Sounds; Negative Organomegaly
Rectal: Deferred by Provider
Musculoskeletal: No Clubbing, No Cyanosis and No Edema
Skin: Negative Rash
Neuro: Awake
Psych: Calm
Data Reviewed
-
MRI: Report Reviewed by me, Discussed with Patient and Discussed with Family
Labs: Labs Reviewed by me
--- NOTE | 2023-05-22 12:23 | CM ---
Addendum entered by MARY JANE Vallejo 05/22/23 16:56:
Spoke with Lillian in PT who stated that she did speak with admissions at [facility], as they were out to evaluate patient. Will await determination/call Paulette in admissions to confirm whether they can accept.
Original Note:
Received notification from Liat in admissions at [facility], that patient can transfer to the [facility] as she has a bed ([phone] for updates).
Will discuss with patient and family.
Have not as of yet received any notification from [facility].
Plan: Case management will continue to follow and assist with discharge planning. Patient/family agreeable to transfer to the [facility] upon discharge. Liat stated that she will work on auth.
--- NOTE | 2023-05-22 13:49 | W.PN.UPDATE ---
Update Note
Progress Note Update
Patient seen with daughter and son in room. 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 Plan discussed with hematology, neurology and hospitalists to continue rate control of atrial fibrillation.
Patient is not an ideal candidate for OAC due to bleeding risk secondary to Von Willebrand's disease. Neurology recommending continuing ASA and statin at this time with consideration for Watchman implant. Outpatient cardiology appointment scheduled
for 06/11/2023 to discuss Watchman device. Will need to consider short term DAPT versus full anticoagulation following Watchman device if patient deemed suitable candidate.
[2023-05-22] MEDS: NSS 250 IV (15:51)
[2023-05-22] MEDS: LIPITOR 40 MG PO (17:50)
[2023-05-22] MEDS: SENOKOT 8.59999999999999964 MG PO (20:35)
[2023-05-23] VITALS (7 sets, daily range): BP systolic 103–164; BP diastolic 73–105; PULSE 84–93; BMI 20.9
[2023-05-23] MEDS: TYLENOL PO (02:15)
[2023-05-23 06:05] LABS: Hematocrit 39.2 % (37.0-47.0); Hemoglobin 13.1 g/dL (12.0-16.0); Mean Corp Hgb Conc. 33.4 g/dL (33.0-37.0); Mean Corpuscular Hgb 30.1 pg (27.0-31.0); Mean Corpuscular Volume 90.1 fL (81.0-99.0); Mean Platelet Volume 9.8 fL (7.4-10.4); Platelet Count 247 10^3/uL (130-400); Red Blood Cell Count 4.35 10^6/uL (4.20-5.40); Red Cell Dist. Width 14.6 % (11.5-14.5); White Blood Cell Count 4.4 10^3/uL (4.8-10.8)
[2023-05-23 06:33] LABS: Blood Urea Nitrogen 22 mg/dl (7-17); Calcium 9.1 mg/dl (8.4-10.2); Carbon Dioxide 27 mmol/L (22-30); Chloride 102 mmol/L (98-107); Estimated Creatinine Clearance 39 ml/min; Glucose 92 mg/dl (70-99); Potassium 4.2 mmol/L (3.5-5.1); Sodium 136 mmol/L (135-145); eGFR > 60.00
[2023-05-23] MEDS: TYLENOL 1000 MG PO ×2 (08:38→18:06)
[2023-05-23] MEDS: ASPIR LOW (ENTERIC COATED) 81 MG PO (08:38)
[2023-05-23] MEDS: LOPRESSOR 12.5 MG PO ×2 (08:39→19:56)
[2023-05-23] MEDS: PREVACID 15 MG PO (08:39)
[2023-05-23] MEDS: COLACE 200 MG PO (08:39)
[2023-05-23] MEDS: MIRALAX PO (08:40)
[2023-05-23] MEDS: COZAAR 100 MG PO (08:40)
--- NOTE | 2023-05-23 14:18 | W.PN.HOSP.TC ---
Today's Communication/Plan
-
compression therapy for orthostatic hypotension
Dispo to [place]
Assessment / Plan
Assessment / Plan
HPI: 88-year-old female PMH Alzheimer's dementia, Von Willebrand disease type 1, Paroxysmal atrial fibrillation, SIADH, Chronic lower extremity hypertrophic lichen planus, Essential hypertension, history of alcohol use disorder, COPD, Rheumatoid
arthritis; p/w slurred speech and facial droop.�
Patient reportedly felt dizzy in the morning. At around 1:10 PM, patient called NH staff because she was not feeling right, and was noted to have slurred speech and facial droop.�EMS was called.� Patient's blood pressure reportedly very elevated at
the 200s over 120s.� Patient is not on anticoagulant medication and just takes a daily aspirin.� No recent trauma.
Of note, patient is a poor historian, but she is able to inform me that she has numbness in both her hands.
Denies to other symptoms.
A/P:
# slurred speech, facial droop, BL hand numbness L > R, due to acute stroke left external capsule
Admission CT head showed no acute intracranial abnormality.
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 No other significant vascular occlusion, aneurysm or dissection.
Follow up MRI brain noted small acute infarct involving the left external capsule. Moderate chronic microvascular white matter ischemic change. Left occipital old/remote infarct. Small chronic right thalamic lacunar infarct. Atrophy.
LDL 144, started Lipitor 40 mg HS
A1c 5.9%
Echo unrevealing: EF 60-65%.�Moderate mitral regurgitation.
Cont CELLOPHANE WORKER losartan, Toprol for BP control, added IV hydralazine for SBP > 180
VSE cleared for pureed with very thick liquid, with supervised feeding
Of note, UA largely unrevealing
Benton was exchanged in ED�2/21
Neuro/Heme/Card on board, d/w specialists, the decision is to pursue [facility] for her persistent A fib and likely start DAPT AFTER procedure. No DAPT or OAC before procedure due to high risk of bleeding in setting of Von Willebrand disease.
For now, cont CELLOPHANE WORKER ASA
PT OT recc Jose, PMR consulted
# Orthostatic hypotension
Start SurgiGrip
# Chronic Benton POA
Benton was exchanged in ED�2/21
UA largely unrevealing, urine Cx with mixed charlotte
# Hyponatremia
Monitor
# Alzheimer's dementia
Pt is AOx2-3, slow to respond to questions asked
# Von Willebrand disease type 1
# Persistent Atrial fibrillation
tele noted persistent A fib
Not on OAC CELLOPHANE WORKER due to Von Willebrand disease
cont BB changed CELLOPHANE WORKER Toprol to Lopressor 12.5 BID
# HTN
cont CELLOPHANE WORKER losartan 100 mg daily
cont BB changed CELLOPHANE WORKER Toprol to Lopressor 12.5 BID
IV hydralazine PRN
# Chronic lower extremity hypertrophic lichen planus
wound care on board
# COPD
# Rheumatoid arthritis
DVT ppx: SCD
FC
DW RN
Anticipated Discharge: 24 - 48 hours
Subjective/Interval History
-
Date of Service: May 23, 2023
Objective Data
-
Labs:
Laboratory Results
05/23/23
05:38
WBC 4.4 L
Hgb 13.1
Hct 39.2
Plt Count 247
Sodium 136
Potassium 4.2
Chloride 102
Carbon Dioxide 27
BUN 22 H
Creatinine 0.8
Glucose 92
Calcium 9.1
Vital Signs:
Vital Signs
Temp Pulse Resp BP Pulse Ox
36.6 C 78 16 113/78 96
05/23/23 11:00 05/23/23 11:00 05/23/23 11:00 05/23/23 11:00 05/23/23 11:00
I&O
05/22/23 05/23/23 05/24/23
06:59 06:59 06:59
Intake Total 580 / 580 540 / 540
Output Total 800 / 800 500 / 500
Balance -220 / -220 40 / 40
Review of Systems
-
Neuro: Reports Numbness (hands and feet- improved )
Physical Exam
-
General: Well Developed, No Apparent Distress, Comfortable and Appears Chronically Ill
HEENT: Normocephalic, Atraumatic, Moist Mucous Membranes, Nose Appears Normal and Ears Appear Normal
Respiratory: Clear to Auscultation and Non Labored Respirations; Negative Accessory Resp Muscle Use
Cardiac: Regular Rhythm and S1/S2; Negative Murmur, Rub or Gallop
GI: Soft, Nontender, Nondistended and Normal Bowel Sounds; Negative Organomegaly
Rectal: Deferred by Provider
Musculoskeletal: No Clubbing, No Cyanosis and No Edema
Skin: Negative Rash
Neuro: Awake
Psych: Calm
Data Reviewed
-
MRI: Report Reviewed by me, Discussed with Patient and Discussed with Family
Labs: Labs Reviewed by me
--- NOTE | 2023-05-23 15:17 | CM ---
CM following re: discharge planning.
Reviewed pt's chart, met with pt and spoke to pt's daughter Nikki over the phone to update on discharge plan progress.
CM received a phone call from [facility] liaison Liat and she stated she is not sure what is discharge plan for the pt: acute rehab or [facility].
PT and OT recommend acute rehab.
CM spoke to [facility] services director and she confirmed that pt is appropriate for acute rehab level of care and pt will be accepted for admission on Thursday.
CM spoke to pt's daughter Nikki and she stated that [facility] acute re[facility] is the number one choice.
D/C plan: [facility].
CM will follow to assist pt with discharge to [facility]
[2023-05-23] MEDS: LIPITOR 40 MG PO (18:07)
[2023-05-23] MEDS: SENOKOT 8.59999999999999964 MG PO (19:51)
[2023-05-24] VITALS (9 sets, daily range): BP systolic 123–176; BP diastolic 85–109; PULSE 88–96
[2023-05-24] MEDS: TYLENOL PO (00:12)
[2023-05-24 06:32] LABS: Hematocrit 42.4 % (37.0-47.0); Hemoglobin 14.3 g/dL (12.0-16.0); Mean Corp Hgb Conc. 33.7 g/dL (33.0-37.0); Mean Corpuscular Hgb 30.8 pg (27.0-31.0); Mean Corpuscular Volume 91.2 fL (81.0-99.0); Mean Platelet Volume 9.7 fL (7.4-10.4); Platelet Count 252 10^3/uL (130-400); Red Blood Cell Count 4.65 10^6/uL (4.20-5.40); Red Cell Dist. Width 14.6 % (11.5-14.5); White Blood Cell Count 5.2 10^3/uL (4.8-10.8)
[2023-05-24 06:52] LABS: Blood Urea Nitrogen 24 mg/dl (7-17); Calcium 9.4 mg/dl (8.4-10.2); Carbon Dioxide 28 mmol/L (22-30); Chloride 105 mmol/L (98-107); Estimated Creatinine Clearance 45 ml/min; Glucose 105 mg/dl (70-99); Potassium 4.2 mmol/L (3.5-5.1); Sodium 138 mmol/L (135-145); eGFR > 60.00
[2023-05-24] MEDS: PREVACID 15 MG PO (08:21)
[2023-05-24] MEDS: COZAAR 100 MG PO (08:21)
[2023-05-24] MEDS: LOPRESSOR 12.5 MG PO ×2 (08:21→19:40)
[2023-05-24] MEDS: ASPIR LOW (ENTERIC COATED) 81 MG PO (08:22)
[2023-05-24] MEDS: TYLENOL 1000 MG PO ×2 (08:22→15:10)
[2023-05-24] MEDS: COLACE PO ×2 (08:22→08:30)
[2023-05-24] MEDS: MIRALAX PO (08:28)
--- NOTE | 2023-05-24 08:57 | CM ---
CM following re: discharge planning.
Reviewed pt's chart, met with pt and spoke to pt's daughter Nikki over the phone to update on discharge plan progress.
Per [facility] acute rehabilitation consultant, pt is appropriate for admission to acute rehab at [facility] and pt will be admitted to [facility] on Thursday and an auth is requested.
CM spoke to [facility] liajuan Josue and she is notified that pt and family preferred acute rehab. Elvis Josue stated to fax pt's clinical to [phone] with attention to Valerie to request an auth. Pt has [facility] [employer] insurance.
CM faxed pt clinical to provided fax number with attention to Valerie to request an auth for acute level of rehab at [facility]
D/C plan: [facility] probably on Thursday or when an auth is available.
CM will follow to assist pt with discharge to [facility] acute re[facility].
--- NOTE | 2023-05-24 12:48 | W.PN.HOSP.TC ---
Today's Communication/Plan
-
see A/P
awaiting [facility]
Assessment / Plan
Assessment / Plan
HPI: 88-year-old female PMH Alzheimer's dementia, Von Willebrand disease type 1, Paroxysmal atrial fibrillation, SIADH, Chronic lower extremity hypertrophic lichen planus, Essential hypertension, history of alcohol use disorder, COPD, Rheumatoid
arthritis; p/w slurred speech and facial droop.�
Patient reportedly felt dizzy in the morning. At around 1:10 PM, patient called NH staff because she was not feeling right, and was noted to have slurred speech and facial droop.�EMS was called.� Patient's blood pressure reportedly very elevated at
the 200s over 120s.� Patient is not on anticoagulant medication and just takes a daily aspirin.� No recent trauma.
Of note, patient is a poor historian, but she is able to inform me that she has numbness in both her hands.
Denies to other symptoms.
A/P:
# slurred speech, facial droop, BL hand numbness L > R, due to acute stroke left external capsule
Admission CT head showed no acute intracranial abnormality.
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 No other significant vascular occlusion, aneurysm or dissection.
Follow up MRI brain noted small acute infarct involving the left external capsule. Moderate chronic microvascular white matter ischemic change. Left occipital old/remote infarct. Small chronic right thalamic lacunar infarct. Atrophy.
LDL 144, started Lipitor 40 mg HS
A1c 5.9%
Echo unrevealing: EF 60-65%.�Moderate mitral regurgitation.
Cont CHANNEL BUSINESS MANAGER losartan, Toprol for BP control, added IV hydralazine for SBP > 180
VSE cleared for pureed with very thick liquid, with supervised feeding
Of note, UA largely unrevealing
Benton was exchanged in ED�2/21
Neuro/Heme/Card on board, d/w specialists, the decision is to pursue [facility] for her persistent A fib and likely start DAPT AFTER procedure. No DAPT or OAC before procedure due to high risk of bleeding in setting of Von Willebrand disease.
For now, cont CHANNEL BUSINESS MANAGER ASA
PT OT recc Jose, PMR consulted
# Orthostatic hypotension
Started SurgiGrip
# Chronic Benton POA
Benton was exchanged in ED�2/21
UA largely unrevealing, urine Cx with mixed charlotte
# Hyponatremia
Monitor
# Alzheimer's dementia
Pt is AOx2-3, slow to respond to questions asked
# Von Willebrand disease type 1
# Persistent Atrial fibrillation
tele noted persistent A fib
Not on OAC CHANNEL BUSINESS MANAGER due to Von Willebrand disease
cont BB changed CHANNEL BUSINESS MANAGER Toprol to Lopressor 12.5 BID
# HTN
cont CHANNEL BUSINESS MANAGER losartan 100 mg daily
cont BB changed CHANNEL BUSINESS MANAGER Toprol to Lopressor 12.5 BID
IV hydralazine PRN
# Chronic lower extremity hypertrophic lichen planus
wound care on board
# COPD
# Rheumatoid arthritis
DVT ppx: SCD
FC
Anticipated Discharge: Within 24 hours
Subjective/Interval History
-
Date of Service: May 24, 2023
Objective Data
-
Labs:
Laboratory Results
05/24/23
06:14
WBC 5.2
Hgb 14.3
Hct 42.4
Plt Count 252
Sodium 138
Potassium 4.2
Chloride 105
Carbon Dioxide 28
BUN 24 H
Creatinine 0.7
Glucose 105 H
Calcium 9.4
Vital Signs:
Vital Signs
Temp Pulse Resp BP Pulse Ox
36.6 C 76 16 123/85 96
05/24/23 11:00 05/24/23 11:00 05/24/23 11:00 05/24/23 11:00 05/24/23 11:00
I&O
05/23/23 05/24/23 05/25/23
06:59 06:59 06:59
Intake Total 540 / 540 1050 / 1050
Output Total 500 / 500 650 / 650
Balance 40 / 40 400 / 400
Review of Systems
-
Neuro: Reports Numbness (hands and feet- improved )
Physical Exam
-
General: Well Developed, No Apparent Distress, Comfortable and Appears Chronically Ill
HEENT: Normocephalic, Atraumatic, Moist Mucous Membranes, Nose Appears Normal and Ears Appear Normal
Respiratory: Clear to Auscultation and Non Labored Respirations; Negative Accessory Resp Muscle Use
Cardiac: Regular Rhythm and S1/S2; Negative Murmur, Rub or Gallop
GI: Soft, Nontender, Nondistended and Normal Bowel Sounds; Negative Organomegaly
Rectal: Deferred by Provider
Musculoskeletal: No Clubbing, No Cyanosis and No Edema
Skin: Negative Rash
Neuro: Awake
Psych: Calm
Data Reviewed
-
MRI: Report Reviewed by me, Discussed with Patient and Discussed with Family
Labs: Labs Reviewed by me
--- NOTE | 2023-05-24 15:54 | CHAP ---
Elida was surprised to see me - an old family friend. She was gracious and pleasant as always. She shared news, and we prayed together.
[2023-05-24] MEDS: LIPITOR 40 MG PO (17:16)
[2023-05-24] MEDS: SENOKOT 8.59999999999999964 MG PO (19:40)
[2023-05-25] VITALS (9 sets, daily range): BP systolic 135–184; BP diastolic 95–123; PULSE 99; O2SAT 98–100; BMI 19.9
[2023-05-25] MEDS: TYLENOL PO ×2 (00:16→16:53)
[2023-05-25 06:19] LABS: Hematocrit 42.8 % (37.0-47.0); Hemoglobin 14.5 g/dL (12.0-16.0); Mean Corp Hgb Conc. 33.9 g/dL (33.0-37.0); Mean Corpuscular Hgb 30.6 pg (27.0-31.0); Mean Corpuscular Volume 90.3 fL (81.0-99.0); Mean Platelet Volume 9.7 fL (7.4-10.4); Platelet Count 266 10^3/uL (130-400); Red Blood Cell Count 4.74 10^6/uL (4.20-5.40); Red Cell Dist. Width 14.4 % (11.5-14.5); White Blood Cell Count 5.2 10^3/uL (4.8-10.8)
[2023-05-25 06:41] LABS: Blood Urea Nitrogen 21 mg/dl (7-17); Calcium 9.5 mg/dl (8.4-10.2); Carbon Dioxide 26 mmol/L (22-30); Chloride 105 mmol/L (98-107); Estimated Creatinine Clearance 45 ml/min; Glucose 108 mg/dl (70-99); Potassium 4.1 mmol/L (3.5-5.1); Sodium 141 mmol/L (135-145); eGFR > 60.00
[2023-05-25] MEDS: TYLENOL 1000 MG PO (07:55)
[2023-05-25] MEDS: COZAAR 100 MG PO (07:55)
[2023-05-25] MEDS: LOPRESSOR 12.5 MG PO (07:55)
[2023-05-25] MEDS: MIRALAX 17 GRAMS PO ×2 (07:56→14:44)
[2023-05-25] MEDS: COLACE 200 MG PO (07:56)
[2023-05-25] MEDS: ASPIR LOW (ENTERIC COATED) 81 MG PO (07:56)
[2023-05-25] MEDS: PREVACID 15 MG PO (07:56)
--- NOTE | 2023-05-25 10:21 | W.PN.HOSP.TC ---
Addendum entered and electronically signed by Yuni Phillips MD 05/25/23 14:29:
Total Critical Care Time__40__ minutes. I was immediately available to the patient and staff. I personally examined, reviewed labs, diagnostic images/reports, interpretations, treatment plans, discussed patient care with other providers and
family or caregivers (if patient is unable to make decisions), entered orders as appropriate and documented the medical record.
Addendum entered and electronically signed by Yuni Phillips MD 05/25/23 14:29:
[facility] was called because pt was complaining of shortness of breath and was noted to be in tachycardic/RVR (she has chronic A fib).
Suspect symptoms due to anxiety.
Her sat was WNL on RA, no new neurologic deficient. BP stable but HR around 120-130 when I was in the room.
She has calmed down with improved HR.
She was reassumed and this has significantly improved her HR.
Neuro was in at [facility], no need for repeat imaging given she does not have new neurologic deficit.
Reconsult Card for A fib RVR.
updated daughter on the phone
Addendum entered and electronically signed by Yuni Phillips MD 05/25/23 13:26:
Updated daughter on the phone
Will add p.o. hydralazine 10 mg 3 times daily in addition to IV as needed for better BP control.
Continue Coreg, continue losartan.
Bowel regimen ordered.
Hopefully patient would have a bowel movement which is required prior to discharge to [place]
Total time spent 51 minutes
Original Note:
Today's Communication/Plan
-
see A/P
Assessment / Plan
Assessment / Plan
HPI: 88-year-old female PMH Alzheimer's dementia, Von Willebrand disease type 1, Paroxysmal atrial fibrillation, SIADH, Chronic lower extremity hypertrophic lichen planus, Essential hypertension, history of alcohol use disorder, COPD, Rheumatoid
arthritis; p/w slurred speech and facial droop.�
Patient reportedly felt dizzy in the morning. At around 1:10 PM, patient called NH staff because she was not feeling right, and was noted to have slurred speech and facial droop.�EMS was called.� Patient's blood pressure reportedly very elevated at
the 200s over 120s.� Patient is not on anticoagulant medication and just takes a daily aspirin.� No recent trauma.
Of note, patient is a poor historian, but she is able to inform me that she has numbness in both her hands.
Denies to other symptoms.
A/P:
# slurred speech, facial droop, BL hand numbness L > R, due to acute stroke left external capsule
Admission CT head showed no acute intracranial abnormality.
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 No other significant vascular occlusion, aneurysm or dissection.
Follow up MRI brain noted small acute infarct involving the left external capsule. Moderate chronic microvascular white matter ischemic change. Left occipital old/remote infarct. Small chronic right thalamic lacunar infarct. Atrophy.
LDL 144, started Lipitor 40 mg HS
A1c 5.9%
Echo unrevealing: EF 60-65%.�Moderate mitral regurgitation.
Cont ENVIRONMENTAL ASSOCIATE losartan, Toprol for BP control, added IV hydralazine for SBP > 180
VSE cleared for pureed with very thick liquid, with supervised feeding
Of note, UA largely unrevealing
Benton was exchanged in ED�2
Neuro/Heme/Card on board, d/w specialists, the decision is to pursue [facility] for her persistent A fib and likely start DAPT AFTER procedure. No DAPT or OAC before procedure due to high risk of bleeding in setting of Von Willebrand disease.
For now, cont ENVIRONMENTAL ASSOCIATE ASA
PT OT MORAIMA PérezR consulted
# Orthostatic hypotension
Started SurgiGrip
# Chronic Benton POA
Benton was exchanged in ED�2/21
UA largely unrevealing, urine Cx with mixed charlotte
# Hyponatremia
Monitor
# Alzheimer's dementia
Pt is AOx2-3, slow to respond to questions asked
# Von Willebrand disease type 1
# Persistent Atrial fibrillation
tele noted persistent A fib
Not on OAC ENVIRONMENTAL ASSOCIATE due to Von Willebrand disease
cont BB changed ENVIRONMENTAL ASSOCIATE Toprol to Lopressor 12.5 BID
# HTN
cont ENVIRONMENTAL ASSOCIATE losartan 100 mg daily
changed ENVIRONMENTAL ASSOCIATE Toprol to Coreg for better BP control
Consider adding Norvasc for persistent high BP
IV hydralazine PRN
# Chronic lower extremity hypertrophic lichen planus
wound care on board
# COPD
# Rheumatoid arthritis
DVT ppx: SCD
FC
Dispo to [facility]
DW RN
Anticipated Discharge: Within 24 hours
Subjective/Interval History
-
Date of Service: May 25, 2023
Objective Data
-
Labs:
Laboratory Results
05/25/23
05:39
WBC 5.2
Hgb 14.5
Hct 42.8
Plt Count 266
Sodium 141
Potassium 4.1
Chloride 105
Carbon Dioxide 26
BUN 21 H
Creatinine 0.7
Glucose 108 H
Calcium 9.5
Vital Signs:
Vital Signs
Temp Pulse Resp BP Pulse Ox
36.7 C 94 17 184/106 96
05/25/23 07:00 05/25/23 07:55 05/25/23 07:00 05/25/23 07:55 05/25/23 07:00
I&O
05/24/23 05/25/23 05/26/23
06:59 06:59 06:59
Intake Total 1050 / 1050 660 / 660
Output Total 650 / 650
Balance 400 / 400 660 / 660
Review of Systems
-
Neuro: Reports Numbness (hands and feet- improved )
Physical Exam
-
General: Well Developed, No Apparent Distress, Comfortable and Appears Chronically Ill
HEENT: Normocephalic, Atraumatic, Moist Mucous Membranes, Nose Appears Normal and Ears Appear Normal
Respiratory: Clear to Auscultation and Non Labored Respirations; Negative Accessory Resp Muscle Use
Cardiac: Regular Rhythm and S1/S2; Negative Murmur, Rub or Gallop
GI: Soft, Nontender, Nondistended and Normal Bowel Sounds; Negative Organomegaly
Rectal: Deferred by Provider
Musculoskeletal: No Clubbing, No Cyanosis and No Edema
Skin: Negative Rash
Neuro: Awake
Psych: Calm
Data Reviewed
-
MRI: Report Reviewed by me, Discussed with Patient and Discussed with Family
Labs: Labs Reviewed by me
--- NOTE | 2023-05-25 10:27 | CM ---
Addendum entered by Nathalie Umana, [facility] 05/25/23 15:34:
Paulette in admissions at [facility] stated that patient can transfer over tomorrow if she is medically cleared and to call Precious [phone] as she will be out of the office until Thursday.
Addendum entered by Nathalie Umana, [facility] 05/25/23 14:37:
[facility] was called. Patient calling out. Discharge cancelled. Left voicemail for Paulette in admissions at [facility] to update.
Addendum entered by Nathalie Umana, [facility] 05/25/23 11:28:
Upon review of notes it appears that previous CM on case started authorization/faxed clinical to Liat in admissions at the [facility]. Paulette from [facility] stated that she will call Liat to determine status of authorization.
Original Note:
Received notification from attending that patient can be discharge today. Placed a call to Paulette in admissions at [facility], who stated that she will obtain authorization. Updated attending that patient has a bed at [facility], just awaiting hopeful
approval.
Plan: Case management will continue to follow and assist with discharge planning. Bed at [facility] upon hopeful authorization from insurance company.
--- NOTE | 2023-05-25 12:20 | PN.CDI ---
CDI
- -
CDI:
Physician Documentation Request
Admit Date: 05/22/23 09:45
Dear Doctor Alan,
Clinical Indicators:
Patient admitted acute stroke left external capsule.
05/25 PN, 'HTN cont BUILDING RIGGER losartan 100 mg daily changed BUILDING RIGGER Toprol to Coreg for better BP control Consider adding Norvasc for persistent high BP.'
EMS Report BP readings: 213/125 200/121
B/P trend on admission:
05/20/23
14:26 05/20/23
14:30 05/20/23
14:51
Blood pressure 214/127 197/134 180/106
05/20/23
15:00
Blood pressure 196/128
Please clarify which, if any of the following, is a more accurate diagnosis reflecting the type and acuity of the documented hypertension:
Hypertensive Emergency - B/P is severely elevated (systolic > or = to 180 or diastolic > or = to 110) but can occur at lower levels especially in patients who did not previously have high B/P. There is usually associated organ damage. Symptoms may
include: memory loss, LOC, CVA, DE, angina, renal failure, pulmonary edema. Generally requires more aggressive treatment and a hospitalization.
Hypertensive Urgency - B/P is severely elevated (systolic > or = to 180 or diastolic > or = to 110) but there is no associated organ damage. Symptoms may include: headache, shortness of breath, nosebleeds, severe anxiety. Treatment usually consists
of addition to or adjusting of oral medications and does not generally necessitate hospitalization.
Hypertensive Crisis - an acute elevation in B/P that can lead to organ damage. Broad term that is further differentiated to include urgency or emergency based on presence of organ damage.
Essential primary hypertension only
Other (please specify)
Use of terms such as suspected, likely, concern for, or probable (associated with a specific diagnosis that is being evaluated, monitored, or treated as if it exists) are acceptable and can be coded in the inpatient setting, when documented at the
time of discharge.
Thank you,
LEONORA Franklin RN
CDI Specialist
available via tiger text
Please use your independent medical judgment in providing your response.
--- NOTE | 2023-05-25 12:32 | PN.CDI ---
CDI
- -
CDI:
Physician Documentation Request
Admit Date: 05/22/23 09:45
Dear Doctor Alan,
Clinical Indicators:
Patient admitted acute stroke left external capsule.
PMH includes SIADH.
05/22 NSS 250 ml bolus x 1.
Sodium trend:
05/20/23 05/20/23 05/22/23
14:34 23:16 05:55
Sodium 129 L 128 L 131 L
05/23/23 05/24/23 05/25/23
05:38 06:14 05:39
Sodium 136 138 141
Based on the above, could you clarify in the progress notes, the likely diagnosis,that supports the above abnormalities and additional evaluation, monitoring and/or treatment rendered:
SIADH
Hyponatremia/history of SIADH only
Other
Use of terms such as suspected, likely, concern for, or probable (associated with a specific diagnosis that is being evaluated, monitored, or treated as if it exists) are acceptable and can be coded in the inpatient setting, when documented at the
time of discharge.
Thank you,
LEONORA Franklin RN
CDI Specialist
available via tiger text
Please use your independent medical judgment in providing your response.
[2023-05-25] MEDS: APRESOLINE 10 MG IV (13:04)
[2023-05-25] MEDS: FLUSH (NSS) 2 FLUSH IV (13:05)
[2023-05-25 13:44] LABS: Glucose - Point of Care 112 mg/dl (70-99)
--- NOTE | 2023-05-25 14:29 | W.PN.NEURO.1 ---
Today's Communication / Plan
-
-Not recommending stroke alert or further neurologic imaging
-Heart rate and atrial fibrillation control
-Reassurance and conservative measures for anxiety
-Continue aspirin 81 mg daily
Will follow as needed
Neuro Assessment/Plan
Assessment
88 year old woman with history of atrial fibrillation, Von Willebrand's disease presenting with dysarthria and speech change, severely elevated BP's
May not have been compliant with aspirin 81 mg daily at home
Has not Been on anticoagulation due to von Willebrand's disease
MRI showing ischemic infarct in the left sided white matter of the brain, high likelihood the infarct is due to atrial fibrillation, other possibility it is due to small vessel disease with history of hypertension
Patient may be candidate for Watchman device which would help with protection against cardioembolic stroke given the high risks of therapeutic anticoagulation in the setting of von Willebrand's disease, agree with proceeding with an evaluation for
this, understanding that after device implantation she would need to be on short term DAPT versus full anticoagulation and then transition to aspirin
Mild cognitive problems at baseline, does not seem has had a formal diagnosis of dementia
Lives in [facility] where she handles dressing, eating, bathing, has meals cooked for her and gets some assistance.
Appears mild cognitive impairment at least and perhaps a mild dementia due to either vascular causes versus Alzheimer's
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 No other significant vascular occlusion, aneurysm or dissection.
Cerebral Aneurysm is asymptomatic and with size and patient age and location does not need further following or interventional evaluation
05/25 agitation, increased slurred speech, tachycardia heart rate up to about 150, atrial fibrillation, preserved blood pressures. No new focal findings on neurologic examination. Worsened dysarthria I feel is likely tachycardia and stress/anxiety
worsening the deficits from recent ischemic stroke
Subjective/Objective
Subjective Data
Date of Service: May 25, 2023
Rapid response due to tachycardia, dyspnea, agitation, increased slurred speech
Objective Data
Vital Signs
Temp Pulse Resp BP Pulse Ox
97.5 F 132 17 172/112 95
05/25/23 11:26 05/25/23 13:04 05/25/23 11:26 05/25/23 13:04 05/25/23 11:26
Lab Results
05/25/23 05:39
05/25/23 05:39
PT 13.2 Sec (11.4-14.6) 05/20/23 14:34
INR 1.00 05/20/23 14:34
APTT 32.6 Sec (23.4-35.0) 05/20/23 14:34
Sodium 141 mmol/L (135-145) 05/25/23 05:39
Potassium 4.1 mmol/L (3.5-5.1) 05/25/23 05:39
BUN 21 mg/dl (7-17) H 05/25/23 05:39
Glucose 108 mg/dl (70-99) H 05/25/23 05:39
Calcium 9.5 mg/dl (8.4-10.2) 05/25/23 05:39
LDL Cholesterol, Calc 144 mg/dl 05/21/23 06:02
Vitamin B12 494 pg/ml (239-931) 05/20/23 14:34
Patient Allergies
amiodarone Allergy (Verified 05/20/23 14:39)
Unknown
amlodipine Allergy (Verified 05/20/23 14:39)
Unknown
desmopressin Allergy (Verified 05/20/23 14:39)
Dehydration
diltiazem Allergy (Verified 05/20/23 14:39)
Unknown
doxycycline Allergy (Verified 05/20/23 14:39)
Unknown
furosemide Allergy (Verified 05/20/23 14:39)
Unknown
hydrochlorothiazide Allergy (Verified 05/20/23 14:39)
DEHYDRATION
infliximab Allergy (Verified 05/20/23 14:39)
flushing and breathing problems
levofloxacin Allergy (Verified 05/20/23 14:39)
numbness
sulfamethoxazole Allergy (Verified 05/20/23 14:39)
Unknown
Review of Systems
-
History Source: Patient
All other systems: Reviewed and negative
Constitutional: No Symptoms
EENT: No Symptoms Reported
Respiratory: No Symptoms
Cardiac: No Symptoms
Abdomen/GI: No Symptoms
Genitourinary: No Symptoms
Musculoskeletal: No Symptoms
Skin: No Symptoms
Neuro: Negative Headache or Weakness
Endocrine: No Symptoms
Hematologic / Lymphatic: No Symptoms
Allergy / Immunology: No Symptoms
Physical Exam
-
General: No Apparent Distress
Eyes: No Ptosis
HEENT: Normocephalic
Neck: No Bruits Bilaterally
Respiratory: Clear to Auscultation
Cardiac: Regular Rhythm
GI: Normal Bowel Sounds
Skin: Unremarkable
Extremities: No Clubbing
Psych: Agitated
Extended Neurological Exam
Mood & Affect: Mood Unremarkable and Affect Unremarkable
Attention Span & Concentration: Awake, Alert, Interactive and Other (Anxious, obeys commands, psychomotor slowing)
Memory: Unremarkable
Tremor: Hand Tremor Absent
Involuntary Movement: None
Speech: Dysarthric; Negative Expressive Aphasia or Receptive Aphasia
Cranial Nerve II: Left Eye: Pupillary Reactivity Unremarkable and Pupillary Size Unremarkable
Cranial Nerve II: Right Eye: Pupillary Reactivity Unremarkable and Pupillary Size Unremarkable
Cranial Nerves III, IV, : Extraocular Movement: Extraocular Movement Full in all Directions
Cranial Nerve VII: Facial Symmetry: Normal Facial Symmetry
Cranial Nerve VIII: Hearing: Unremarkable Hearing to Normal Conversational Volume
Muscle Strength, Overall: Other (Right hand weakness right arm drift 4/5 abduction arm flexion, legs 4/5 hip flexion and symmetric)
Pronator Drift: Drift in Right Upper Extremity
Deep Tendon Reflexes: Trace Throughout
Data Reviewed
-
CT-A: Report Reviewed and Image Reviewed
CT Head: Report Reviewed and Image Reviewed
MRI Head: Report Reviewed and Image Reviewed
--- NOTE | 2023-05-25 14:38 | W.PN.CARDCBS ---
Addendum entered and electronically signed by Von Fay DO 05/25/23 16:03:
I saw and examined the patient.
The Manager Of Operations's note was reviewed and I agree with the note.
Comment:
Plan:
Responded to rapid response
Change Coreg to Lopressor 25 mg BID after pt received IV lopressor
Titrated Lopressor as needed for better heart rate control.
Pt scheduled for outpt eval for Watchman
Discussed with nursing.
Discussed with primary service.
Original Note:
Today's Communication / Plan
-
Present at rapid response, talked with RN and attending
Change Coreg 12.5 mg BID to Lopressor 25 mg BID starting this evening
Lopressor 5 mg IV x1 now
Outpatient follow up for Watchman scheduled
Impression / Plan
-
PCP: Dr. Rhea Hawkins
Cardiology: Dr. Maryana Sorto, last seen 09/05/21
Assessment:
Admitted with acute stroke left external capsule to 05/20/23
Persistent to permanent atrial fibrillation
Not chronically anticoagulated due to history of von Willebrand's disease
von Willebrand's disease
Dementia
COPD
RA
Moderate MR by echo 05/21/2023
COPD-lifelong nonsmoker
chronic Hyponatremia, h/o SIADH
Hypertension
h/o bradycardia
GERD
anemia
Echo 07/2011 shows EF 60% with mild LVH, mild diastolic dysfunction, mild to moderate mitral regurg
echo 09/22/14:� EF 60-65%, mod MR with mild pulm htn
Echo 05/21/23: EF 60 to 65%, severely dilated atria, moderate MR, mild aortic regurgitation, moderate TR with PAP 40 to 45 mmHg
Plan:
-Patient was seen by cardiology 05/21/23 for evaluation for watchman device. Patient with a h/o persistent to permanent Afib and was not chronically anticoagulated due to h/o von Willebrand's. Patient presented with an acute CVA 05/20/23. Talked with
patient and family 05/21/23 about watchman device evaluation and that the watchman team would need to confer with heme/onc about a post-implant OAC vs antiplatelet regimen. Plan was to continue that plan of care conversation as an outpatient. In the
meantime the patient was accepted as a patient at [facility] and is expected to transfer 05/25/23. Cardiology called to see patient in the midst of a rapid response for rapid Afib, HRs in the 170s and patient reported being SOB.
-Talked with patient and then with her RN in the [place]. Patient was taking Toprol XL 25 mg daily on admission and this was changed to Lopressor 12.5 mg BID during this admission. Patient was then changed to Coreg 12.5 mg BID on 05/25/23 to help with
HTN. Will change back to Lopressor at a higher dose of 25 mg BID starting 05/25/23 PM plus a dose of Lopressor 5 mg IV x1 now
-Afib is persistent to permanent at this point.
-Patient is scheduled to see Dr. Haney to discuss Watchman and review options for a post-implant regimen of OAC vs DAPT in the office on 06/09/23 at 10:20 AM.
-Would not perform additional imaging studies until a post implant regimen can be agreed upon between the hematology and structural heart team.
HPI: Patient lives at [facility] and was sent to ER on 05/20/2023 with stroke symptoms, cardiology has been consulted for consideration of watchman evaluation. Patient lives in the personal-care section at [facility] and the family
describes that as her meals and medications being taken of by facility staff but that otherwise the patient is fairly independent. The facility staff noticed that she had slurred speech and a right facial droop starting in the afternoon of
05/20/2023 plus she was markedly hypertensive. She was sent to ER. Patient had a small acute infarct involving the posterior margin of the left external capsule by MRI. Neurology felt that the differential diagnosis included ischemic stroke due
to A-fib or diffuse embolic event given A-fib and the fact that the patient is not chronically anticoagulated due to von Willebrand's disease. The patient was then seen in consultation by heme/onc and per hematology note 'if stroke felt to be
embolic CVA would favor Watchman procedure with dual antiplatelet therapy for 45 days posttreatment over long-term anticoagulation with dual antiplatelet therapy or long-term anticoagulation with Eliquis,' and so cardiology has been asked to see the
patient to help determine if a Watchman procedure using dual antiplatelet therapy without anticoagulation is feasible. The patient was diagnosed with von Willebrand's while living in [place]. She has never been anticoagulated. She tolerates an
aspirin 81 mg daily. The patient and the daughter report very little bruising or bleeding in recent years.
Progress Note - Curriculum And Instruction Specialist
Subjective
Date of Service: May 25, 2023
She is screaming out in pain as IV is being replaced
Objective
Labs:
05/25/23 05:39
05/25/23 05:39
Labs
Hgb 14.5 g/dL (12.0-16.0) 05/25/23 05:39
Hct 42.8 % (37.0-47.0) 05/25/23 05:39
Plt Count 266 10^3/uL (130-400) 05/25/23 05:39
PT 13.2 Sec (11.4-14.6) 05/20/23 14:34
INR 1.00 05/20/23 14:34
APTT 32.6 Sec (23.4-35.0) 05/20/23 14:34
Sodium 141 mmol/L (135-145) 05/25/23 05:39
Potassium 4.1 mmol/L (3.5-5.1) 05/25/23 05:39
BUN 21 mg/dl (7-17) H 05/25/23 05:39
Creatinine 0.7 mg/dL (0.6-1.0) 05/25/23 05:39
Glucose 108 mg/dl (70-99) H 05/25/23 05:39
Vital Signs and I&O:
Vital Signs
Temp Pulse Resp BP Pulse Ox
97.5 F 132 17 172/112 95
05/25/23 11:26 05/25/23 13:04 05/25/23 11:26 05/25/23 13:04 05/25/23 11:26
Vital Signs
Temp Pulse Resp BP Pulse Ox
97.5 F 132 17 172/112 95
05/25/23 11:26 05/25/23 13:04 05/25/23 11:26 05/25/23 13:04 05/25/23 11:26
Intake & Output
05/23/23 05/24/23 05/25/23 05/26/23
06:59 06:59 06:59 06:59
Intake Total 540 / 540 1050 / 1050 660 / 660
Output Total 500 / 500 650 / 650
Balance 40 / 40 400 / 400 660 / 660
Physical Exam
Physical Exam
GEN: NAD. AAO to self only
HEENT: EOMI, MMM
LUNGS: CTA B/L, no wheezes or rales
CV: Irreg irreg and rapid, S1/S2, 2/6 BSM
ABD: soft, BS+, NT, ND
EXT: No clubbing, cyanosis, lesions or edema B/L
NEURO: Gross non-focal
SKIN: Warm, dry and pink. No rash
[2023-05-25] MEDS: SENOKOT-S 1 TABLET PO ×2 (14:39→20:55)
[2023-05-25] MEDS: LOPRESSOR 5 MG IV (14:45)
[2023-05-25] MEDS: APRESOLINE PO (16:53)
[2023-05-25] MEDS: LIPITOR PO (17:07)
--- NOTE | 2023-05-25 18:04 | PTCARENOTE ---
- patient unable to work with PT today. Pt Bp was elevated 160-180s/110s. when patient laura stood at bedside she felt nauseous and began gagging. PT determined patient was unable to do any further work. this nurse notified dr. Phillips at 12:36... IV
hydralazine parameters adjusted. pt given IV hydralazine
-Pt kent auth approved, this nurse double checked with dr. Phillips that she okay with dc pt with blood pressure not controlled. This nurse called [facility] to give report and donte declined to take pt as she has not had a BM. Dr. Phillips notified
- At 1330 pt was found to be in afib w RVR hr in the 170s, pt was calm sitting in bed. Pt stated that she felt like she could not breath. this nurse and others attempted to get vitals and EKG on pt. pt became agitated, uncooperative, yelling and
hitting staff. Pt on the phone with daughter to help calm her down and speech became slower with slurring. RR called. Dr. Phillips and neuro notified and arrived at the bedside. Dr. Phillips consulted cardiology for further hr and bp management.
- Pt refused 1600 and 1800 meds, pt states ' i will not take anything'
[2023-05-25] MEDS: LOPRESSOR 25 MG PO (20:41)
[2023-05-25] MEDS: APRESOLINE 10 MG PO (21:01)
[2023-05-26] MEDS: TYLENOL PO (00:03)
[2023-05-26 03:30] VITALS: BP 148/93
[2023-05-26 05:50] VITALS: BMI 19.8
[2023-05-26 07:17] LABS: Blood Urea Nitrogen 25 mg/dl (7-17); Calcium 9.5 mg/dl (8.4-10.2); Carbon Dioxide 25 mmol/L (22-30); Chloride 110 mmol/L (98-107); Estimated Creatinine Clearance 34 ml/min; Glucose 100 mg/dl (70-99); Potassium 4.1 mmol/L (3.5-5.1); Sodium 143 mmol/L (135-145); eGFR > 60.00
[2023-05-26 07:44] VITALS: BP 167/105
[2023-05-26] MEDS: COLACE 200 MG PO (07:54)
[2023-05-26] MEDS: COZAAR 100 MG PO (07:54)
[2023-05-26] MEDS: PREVACID 15 MG PO (07:54)
[2023-05-26] MEDS: TYLENOL 1000 MG PO ×2 (07:54→17:16)
[2023-05-26] MEDS: ASPIR LOW (ENTERIC COATED) 81 MG PO (07:54)
[2023-05-26] MEDS: SENOKOT-S 1 TABLET PO (07:54)
[2023-05-26] MEDS: LOPRESSOR 25 MG PO (07:55)
[2023-05-26] MEDS: APRESOLINE 10 MG PO (07:55)
[2023-05-26] MEDS: MIRALAX 17 GRAMS PO (07:55)
[2023-05-26 10:45] VITALS: BP 124/88; PULSE 90; O2SAT 98
[2023-05-26 11:00] VITALS: BP 96/64
[2023-05-26 12:00] VITALS: BP 105/74
--- NOTE | 2023-05-26 12:04 | W.PN.HOSP.TC ---
Addendum entered and electronically signed by Yuni Phillips MD 05/26/23 14:52:
# Hypertensive urgency
# Hyponatremia
Addendum entered and electronically signed by Yuni Phillips MD 05/26/23 14:23:
total DC time 35 min
Original Note:
Today's Communication/Plan
-
for Garcia
Assessment / Plan
Assessment / Plan
HPI: 88-year-old female H Alzheimer's dementia, Von Willebrand disease type 1, Paroxysmal atrial fibrillation, SIADH, Chronic lower extremity hypertrophic lichen planus, Essential hypertension, history of alcohol use disorder, COPD, Rheumatoid
arthritis; p/w slurred speech and facial droop.�
Patient reportedly felt dizzy in the morning. At around 1:10 PM, patient called NH staff because she was not feeling right, and was noted to have slurred speech and facial droop.�EMS was called.� Patient's blood pressure reportedly very elevated at
the 200s over 120s.� Patient is not on anticoagulant medication and just takes a daily aspirin.� No recent trauma.
Of note, patient is a poor historian, but she is able to inform me that she has numbness in both her hands.
Denies to other symptoms.
A/P:
# slurred speech, facial droop, BL hand numbness L > R, due to acute stroke left external capsule
Admission CT head showed no acute intracranial abnormality.
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 No other significant vascular occlusion, aneurysm or dissection.
Follow up MRI brain noted small acute infarct involving the left external capsule. Moderate chronic microvascular white matter ischemic change. Left occipital old/remote infarct. Small chronic right thalamic lacunar infarct. Atrophy.
LDL 144, started Lipitor 40 mg HS
A1c 5.9%
Echo unrevealing: EF 60-65%.�Moderate mitral regurgitation.
Cont JEWEL SORTER losartan, Toprol for BP control, added IV hydralazine for SBP > 180
VSE cleared for pureed with very thick liquid, with supervised feeding
Of note, UA largely unrevealing
Benton was exchanged in ED�2
Neuro/Heme/Card on board, d/w specialists, the decision is to pursue Watchman for her persistent A fib and likely start DAPT AFTER procedure. No DAPT or OAC before procedure due to high risk of bleeding in setting of Von Willebrand disease.
For now, cont JEWEL SORTER ASA
PT OT recc [facility], NE[facility]I consulted and awaiting [facility] to accept pt
# DETECTIVE CAPTAIN was called 05/25 for SOB and tachycardia, suspect due to pt's anxiety.
Her VS improved after reassurance and reorientation
No new neurologic deficient appreciated, hence no indication to repeat brain imaging
Cont rate control with Lopressor 25 mg BID
# Orthostatic hypotension
Started SurgiGrip
# Chronic Benton POA
Benton was exchanged in ED�05/20
UA largely unrevealing, urine Cx with mixed [place]
# Hyponatremia
Monitor
# Alzheimer's dementia
Pt is AOx2-3, slow to respond to questions
# Von Willebrand disease type 1
# Persistent Atrial fibrillation
tele noted persistent A fib
Not on OAC JEWEL SORTER due to Von Willebrand disease
Cont rate control with Lopressor 25 mg BID
# HTN
cont JEWEL SORTER losartan 100 mg daily with hold parameter
Cont Lopressor 25 mg BID hold parameter
Will DC further Hydralazine 10 mg TID (BP now stable)
IV hydralazine PRN
# Chronic lower extremity hypertrophic lichen planus
wound care on board
# COPD
# Rheumatoid arthritis
DVT ppx: SCD
FC
Dispo to [facility]
DW RN
DW daughter at bedside
Anticipated Discharge: Within 24 hours
Subjective/Interval History
-
Date of Service: May 26, 2023
Objective Data
-
Labs:
Laboratory Results
05/26/23
06:12
Sodium 143
Potassium 4.1
Chloride 110 H
Carbon Dioxide 25
BUN 25 H
Creatinine 0.9
Glucose 100 H
Calcium 9.5
Vital Signs:
Vital Signs
Temp Pulse Resp BP Pulse Ox
36.4 C 100 17 96/64 97
05/26/23 07:44 05/26/23 11:00 05/26/23 11:00 05/26/23 11:00 05/26/23 11:00
I&O
05/25/23 05/26/23 05/27/23
06:59 06:59 06:59
Intake Total 660 / 660 90 / 90
Output Total 570 / 570
Balance 660 / 660 -480 / -480
Review of Systems
-
Unable to obtain full review of systems at this time due to: Dementia
All other systems: Reviewed and negative
Physical Exam
-
General: Well Developed, No Apparent Distress, Comfortable and Appears Chronically Ill
HEENT: Normocephalic, Atraumatic, Moist Mucous Membranes, Nose Appears Normal and Ears Appear Normal
Respiratory: Clear to Auscultation and Non Labored Respirations; Negative Accessory Resp Muscle Use
Cardiac: Regular Rhythm and S1/S2; Negative Murmur, Rub or Gallop
GI: Soft, Nontender, Nondistended and Normal Bowel Sounds; Negative Organomegaly
Rectal: Deferred by Provider
Musculoskeletal: No Clubbing, No Cyanosis and No Edema
Skin: Negative Rash
Neuro: Awake
Psych: Calm
Data Reviewed
-
MRI: Report Reviewed by me, Discussed with Patient and Discussed with Family
Labs: Labs Reviewed by me
--- NOTE | 2023-05-26 12:47 | CM ---
Addendum entered by MARY JANE Vallejo 05/26/23 15:37:
Spoke with Precious who wanted to know when the patient last moved her bowels. RN asked patient and she stated that it was this morning. Spoke with [facility] who confirmed the ability to accept patient.
Original Note:
Received notification from attending that patient has been medically cleared for discharge. Placed a call to Precious, # in previous CM note who stated that she will clinically look at patient and get back to CM with determination regarding
acceptance.
Plan: Case management will continue to follow and assist with discharge planning. Garcia when stable.
[2023-05-26 13:59] VITALS: BMI 19.8
--- NOTE | 2023-05-26 14:06 | W.DCSUMMARY ---
Discharge Summary
Discharge Data
Date of Admission: 05/22/23
Date of Discharge: 05/26/23
-
Pending Results: No
Hospital Course
Principal Diagnosis:
Acute stroke in the left external capsule
Chronic Diagnoses:�
Chronic Powell (Powell was exchanged in emergency room on�05/20)
Alzheimer's dementia (patient is AOx2-3, slow to respond to questions)
Von Willebrand disease type 1
Persistent Atrial fibrillation
Essential hypertension
Chronic lower extremity hypertrophic lichen planus
Chronic obstructive pulmonary disease
Rheumatoid arthritis
Consultations:�
Neurology
Cardiology
Hematology
Procedures:�
None
Clinical course:�
This is a 88-year-old female with past medical history as stated above, who presented with slurred speech and facial droop.�
Problem 1:
Slurred speech, facial droop, bilateral hand numbness L > R, due to acute stroke in the left external capsule.
Her admission CT head showed no acute intracranial abnormality.
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 No other significant vascular occlusion, aneurysm or dissection.
Her follow up MRI brain noted small acute infarct involving the left external capsule.�Moderate chronic microvascular white matter ischemic change. Left occipital old/remote infarct. Small chronic right thalamic lacunar infarct. Atrophy.
It is felt likely that her permanent atrial fibrillation contributed to her stroke.
As part of the stroke workup, LDL was checked which was elevated at 144, the patient was started with Lipitor 40 mg at bedtime.
Her A1c was WNL at 5.9%.
Her echo was unrevealing: EF 60-65%.�Moderate mitral regurgitation.
She was evaluated by speech therapist and was cleared for pureed with very thick liquid going forward.
Of note, her UA largely was unrevealing and her prior to admission Powell catheter was exchanged on admission in the emergency room on 05/20/2023.
Per discussion with Neuro/Heme/Chief Technician, the plan is to have the patient pursue Watchman for her persistent A fib and likely to start DAPT AFTER procedure. There is NO plan to start DAPT or OAC before procedure due to the high risk of bleeding
in setting of her Von Willebrand disease.
For now,�she can continue with her PROGRAMMER ANALYST CONSULTANT ASA.
She was discharged to [place] per PT OT evanna.
Problem 2:
Orthostatic hypotension
Started SurgiGrip this admission.
Problem 3:
Essential hypertension.
She can continue with her prior to admission losartan and Metoprol (from Toprol 50 mg daily to Lopressor 25 mg BID).
At one point hydralazine was added but it does not seem that the patient requires it anymore with stabilized blood pressure.
She can continue to follow-up with the PCP for further blood pressure management.
As for the rest of her medical problems, they were stable during her hospital stay.
Discharge Plan
-
Patient Disposition: Acute Rehab Facility
Discharge Diagnosis/Procedures: Slurred speech/facial droop/hands numbness due to acute stroke left external capsule; persistent Atrial fibrillation; Orthostatic hypotension; Chronic Powell; Von Willebrand disease type 1
Condition: Fair
Diet: As tolerated
Additional Diets: pureed with very thick liquid, with supervised feeding
Activity: As tolerated
Driving Restrictions: No driving
Wound Care: Wound Care Instructions
LLE dry scabbed areas-cover with adaptic, gauze and kena as needed for drainage/protection after cleaning with saline, change daily.
Moisture lotion to dry intact skin Le's daily.
Barrier ointment to buttocks bid.
Elevate heels off bed with pillow.
Pressure redistributing chair cushion (i.e. Air chair cushion).
Follow up with drafter geophysical for LLE skin lesions.
Follow up with air pollution inspector or toenail care.
Follow up at wound care center if needed, call for an appointment.
Activity Restrictions/Additional Instructions:
Take Metoprol 25 mg twice daily.
Monitor blood pressure.
The plan is to pursue Watchman outpatient for your persistent A fib, and likely start dual antiplatelet AFTER the procedure.
No dual antiplatelet or anticoagulation before the procedure due to high risk of bleeding in setting of your Von Willebrand disease.
Your powell was exchanged on admission 05/20. Next change in 4 week (the week of 06/16)
Referrals:
Nica Lynn, [Family Provider] - in less than 1 week
Archana Haney MD [Active] - 06/09/23 10:20 am (You have a follow up with cardiology, Dr. Haney on June 08 at 10:[address] in [address] [facility] which is located behind the hospital to discuss Watchman implant. If you are unable to make the
appointment please call [phone] to reschedule)
Prescriptions:
New
atorvastatin 40 mg Tablet
40 mg PO QPM Qty: 30 0RF
metoprolol tartrate 25 mg Tablet
25 mg PO BID Qty: 60 0RF
Continued
losartan 100 mg tablet
100 mg PO DAILY
Patient Comments:
10/24/21 pt in non compliant with medications
sennosides [Senokot] 8.6 mg Tablet
8.6 mg PO DAILY@1999
aspirin 81 mg Tablet,Delayed Release (Dr/Ec)
81 mg PO DAILY
acetaminophen [Tylenol Extra Strength] 500 mg Tablet
1,000 mg PO Q8H
cholecalciferol (vitamin D3) [Vitamin D3] 50 mcg (2,000 unit) Capsule
100 mcg PO SUMOWEFR@0800
cholecalciferol (vitamin D3) [Vitamin D3] 50 mcg (2,000 unit) Tablet
50 mcg PO TUTHSA@0800
polyethylene glycol 3350 17 gram powder in packet
17 grams PO DAILY
docusate sodium 100 mg capsule
200 mg PO DAILY
Discontinued
metoprolol succinate 25 MG tablet extended release 24 hr
25 mg PO DAILY@1999
Discharge Orders:
Discharge Patient (As Directed); Ordered 05/26/23
Ordered By: Yuni Phillips
[2023-05-26 15:00] VITALS: BP 140/90
[2023-05-26] MEDS: LIPITOR 40 MG PO (17:17)
--- NOTE | 2023-06-08 13:52 | OID.L.PAT ---
Pulmonary Nodule Pat Letter
- -
06/08/23
ALFONSO BOOGIE
[id number]
[place], [place] [address]
Dear ALFONSO,
A pulmonary nodule was seen on an imaging study done by [facility]. This was reviewed by the [facility] Pulmonary Nodule Advisory Board and the following recommendation was made:
Recommendation: Follow up CT Chest - now
If you have any questions, please do not hesitate to contact your primary care physician. If you are in need of a Physician, you can go to [email or web address] and click on 'Find a Provider'. Type 'Family Medicine' in the search.
Oncology Nurse Navigator
[facility]
[phone]
--- NOTE | 2023-06-08 13:52 | OID.L.REC ---
Pulmonary Nodule Follow Up
- Recommendation
06/08/23
Pulmonary Nodule Review Recommendations
Your patient, ALFONSO BOOGIE, had a pulmonary nodule seen on an imaging study done on 05/20/23 in the [facility] Emergency Room.
This was reviewed by the [facility] Pulmonary Nodule Advisory Board and the following recommendation was made:
Recommendation: Follow up CT Chest - now
If you have any questions please do not hesitate to contact us.
Sincerely,
Oncology Nurse Navigator
[facility]
[phone]
== END 2023-05-26 18:08 | DRG 65 ==
LOC: 3 WEST ACU 09:45
PROVIDERS: Nurse Practitioner Family; ADMITTING PHYSICIAN Internal Medicine; CONSULT PHYSICIAN Internal Medicine Hematology & Oncology; CONSULT PHYSICIAN Nuclear Medicine Nuclear Cardiology; CONSULT PHYSICIAN Physical Medicine & Rehabilitation; CONSULT PHYSICIAN Psychiatry & Neurology Neurology; EMERGENCY PHYSICIAN Emergency Medicine; FAMILY PHYSICIAN Internal Medicine
DX: I63.81 Other cerebral infarction due to occlusion or stenosis of small artery (principal); D68.01 Von Willebrand disease, type 1; F02.A4 Dementia in other diseases classified elsewhere, mild, with anxiety; I48.21 Permanent atrial fibrillation; E22.2 Syndrome of inappropriate secretion of antidiuretic hormone; I10 Essential (primary) hypertension; G30.9 Alzheimer's disease, unspecified; L43.0 Hypertrophic lichen planus; J44.9 Chronic obstructive pulmonary disease, unspecified; M06.9 Rheumatoid arthritis, unspecified; Z79.82 Long term (current) use of aspirin; I95.1 Orthostatic hypotension; I16.0 Hypertensive urgency
CPT/HCPCS: 51702; 70450; 70496; 70498; 70551; 71045; 74230; 80048; 80053; 80061; 81003; 81015; 82607; 82728; 82746; 82962; 83036; 83735; 84443; 84484; 85025; 85027; 85610; 85730; 87070; 87086; 92523; 92526; 92610; 92611; 93005; 93306; 94640; 97110; 97116; 97163; 97167; 97530; 97535; 99285; Q9967

== ENCOUNTER → 2023-07-08 10:00 | Outpatient (REF) | payer MEDICARE, SELFPAY | LOC: RAD 10:00 | PROVIDERS: ATTENDING PHYSICIAN Internal Medicine | DX: R13.10 Dysphagia, unspecified (principal) | CPT/HCPCS: 92611 ==

== ENCOUNTER → 2023-07-08 10:31 | Outpatient (REF) | payer MEDICARE, SELFPAY | LOC: RAD 10:31 | PROVIDERS: ATTENDING PHYSICIAN Internal Medicine | DX: R13.10 Dysphagia, unspecified (principal) | CPT/HCPCS: 74230 ==

== ENCOUNTER 2024-02-29 19:55 | Emergency (ER) | payer MEDICARE, SELFPAY ==
[2024-02-29 19:57] VITALS: BP 112/61
--- NOTE | 2024-02-29 20:09 | ED.GENMED ---
ED Provider Triage
<Eleno Celestin PA-C - Last Filed: 02/29/24 20:10>
-
Patient seen by provider in Triage?: Seen in Triage
Attestation: A medical screening examination has been initiated by a qualified medical provider. Based on the assessment performed at this time, it has been determined that an emergent medical condition may exist and the patient has been informed
that further medical evaluation and possible additional diagnostic testing may be needed.
HPI: 88-year-old female presenting to the ER for evaluation of failure to thrive. Has not been eating or drinking. Lives at [facility]. History difficult to obtain. Multiple comorbidities. She is otherwise currently stable.
GENERAL: Alert , in no apparent distress
EYE: No visual abnormalities.
NECK: Trachea midline
ENT: No visible abnormalities.
LUNGS: No acute respiratory distress
NEUROLOGICAL: Alert and oriented
SKIN: Skin intact. No visible changes.
MUSCULOSKELETAL: Moving extremities normally
PSYCH: Normal and appropriate interaction.
This is a medical evaluation conducted in person to initiate diagnostic evaluation and provide initial therapeutics. Please see further documentation by the treating clinician.
History of Present Illness
<Eleno Celestin PA-C - Last Filed: 02/29/24 20:10>
General
Chief Complaint: Failure to Thrive
Time Seen by Provider: 02/29/24 22:55
<Francisca Richardson NP - Last Filed: 03/01/24 01:50>
General
Source: patient, ambulance crew and snf
Exam Limitations: none
Nursing documentation reviewed up to this point in time: agreed with
History of Present Illness
History of Present Illness:
Patient to ED with report of 'failure to thrive'. According to report, patient has not been eating or drinking. History of dementia. She arrives awake and cooperative, offers no complaints.
Past History
<Eleno Celestin PA-C - Last Filed: 02/29/24 20:10>
Past History
ED Past Medical History: Arrthythmia (PAF), HTN, Psychiatric (Anxiety on Ativan) and Other (Cellulitis, hyponatremia, dementia); Negative Hypercholesterolemia, IDDM, NIDDM, KS or Renal failure
ED Past Surgical History: None
Social History
Tobacco: Non-smoker
Alcohol: Daily (Scotch one glass)
Drug: None
Personal:
Living: alone
Employment: Retired
Family History
Family History: Hypertension
Review of Systems
<Francisca Richardson DIRECTOR OF INCOME TAX - Last Filed: 03/01/24 01:50>
Review of Systems
Allergies reviewed?: Yes
All Other Systems: ROS reviewed and negative except as documented in HPI and ROS
Constitutional: Reports no symptoms
EENT: Reports no symptoms
Respiratory: Reports no symptoms
Cardiac: Reports no symptoms
ABD/GI: Reports anorexia (Report from facility that she has not been eating or drinking)
: Reports no symptoms
Musculoskeletal: Reports no symptoms
Skin: Reports no symptoms
Neurological: Reports no symptoms
Psychiatric: Reports no symptoms
Phy Exam
<Francisca Richardson DIRECTOR OF INCOME TAX - Last Filed: 03/01/24 01:50>
General Physical Exam
General Presentation: well appearing and no apparent distress
General age: appears stated age
General Skin: warm and dry
General Habitus: normal
General Mental: alert
Cardiovascular Exam
Cardiovascular Exam: regular rate/rhythm
Pulmonary Exam
Pulmonary Exam: lungs clear and no respiratory distress
Gastrointestinal Exam
Gastrointestinal Exam: normal bowel sounds, non tender, soft and no organomegaly
Musculoskeletal Exam
Musculoskeletal Exam: full ROM and neuro vasc intact
Skin Exam
Skin Exam: normal color, warm/dry and no rash
Psychiatric Exam
Psychiatric Exam: normal mood/affect
Course
<Eleno Celestin PA-C - Last Filed: 02/29/24 20:10>
Orders/Labs/Results
Orders:
Orders
02/29/24 20:06
CMP [Comprehensive Metabolic Panel] Urgent
Complete Blood Count/With Diff Urgent
02/29/24 23:16
Urinalysis Reflex To Culture Urgent
Date Specimen was Collected: 02/29/24
Time Specimen was Collected: 23:09
Urine Microscopic Reflex Cult Urgent
Urine Culture Urgent
MATEUS Source: U
Specimen Description:
Date Specimen was Collected: 02/29/24
Time Specimen was Collected: 23:09
03/01/24 01:41
Cephalexin Monohydrate [Keflex] 500 mg PO NOW STA
Abnormal Lab Results
02/29/24 02/29/24
20:06 23:16
MCHC 31.7 L g/dL
(33.0-37.0)
BUN 25 H mg/dl
(7-17)
Creatinine 1.2 H mg/dL
(0.6-1.0)
Glucose 118 H mg/dl
(70-99)
Ur Occult Blood Reflex 4+ A
(Negative)
Urine Nitrite (Reflex) Positive A
(Negative)
Leukocyte Esterase Rfl 2+ A
(Negative)
Urine RBC 21-25 A /HPF
(0-2)
Urine WBC (Reflex) >100 A /HPF
(0-5)
Urine Bacteria (Reflex) Moderate A
(Negative)
Urine Albumin (Reflex) 2+ A
(Neg - Trace)
02/29/24 20:06
02/29/24 20:06
Vital Signs
Initial and Last Documented VS:
Initial Vital Signs
Temp Pulse Resp BP Pulse Ox
97.7 F 69 18 112/61 98
02/29/24 19:57 02/29/24 19:57 02/29/24 19:57 02/29/24 19:57 02/29/24 19:57
Last Documented Vital Signs
Temp Pulse Resp BP Pulse Ox
97.7 F 56 18 136/83 97
02/29/24 19:57 03/01/24 01:40 03/01/24 01:40 03/01/24 01:40 03/01/24 01:40
<Francisca Richardson, GUEVARA - Last Filed: 03/01/24 01:50>
Orders/Labs/Results
Orders:
Orders
02/29/24 20:06
CMP [Comprehensive Metabolic Panel] Urgent
Complete Blood Count/With Diff Urgent
02/29/24 23:16
Urinalysis Reflex To Culture Urgent
Date Specimen was Collected: 02/29/24
Time Specimen was Collected: 23:09
Urine Microscopic Reflex Cult Urgent
Urine Culture Urgent
MATEUS Source: U
Specimen Description:
Date Specimen was Collected: 02/29/24
Time Specimen was Collected: 23:09
03/01/24 01:41
Cephalexin Monohydrate [Keflex] 500 mg PO NOW STA
Abnormal Lab Results
02/29/24 02/29/24
20:06 23:16
MCHC 31.7 L g/dL
(33.0-37.0)
BUN 25 H mg/dl
(7-17)
Creatinine 1.2 H mg/dL
(0.6-1.0)
Glucose 118 H mg/dl
(70-99)
Ur Occult Blood Reflex 4+ A
(Negative)
Urine Nitrite (Reflex) Positive A
(Negative)
Leukocyte Esterase Rfl 2+ A
(Negative)
Urine RBC 21-25 A /HPF
(0-2)
Urine WBC (Reflex) >100 A /HPF
(0-5)
Urine Bacteria (Reflex) Moderate A
(Negative)
Urine Albumin (Reflex) 2+ A
(Neg - Trace)
02/29/24 20:06
02/29/24 20:06
Vital Signs
Initial and Last Documented VS:
Initial Vital Signs
Temp Pulse Resp BP Pulse Ox
97.7 F 69 18 112/61 98
02/29/24 19:57 02/29/24 19:57 02/29/24 19:57 02/29/24 19:57 02/29/24 19:57
Last Documented Vital Signs
Temp Pulse Resp BP Pulse Ox
97.7 F 56 18 136/83 97
02/29/24 19:57 03/01/24 01:40 03/01/24 01:40 03/01/24 01:40 03/01/24 01:40
ED Attending Note
<Eleno Celestin PA-C - Last Filed: 02/29/24 20:10>
-
Portions of this chart may have been created with voice recognition software.� Occasional wrong word or��sound alike� substitutions may have occurred due to the inherent limitations of voice recognition software.
Discharge Plan
Departure
Patient Disposition: Home (Routine Discharge)
Date of Disposition: 03/01/24
Time of Disposition: 01:41
Patient with high blood pressure during this ER visit?: No
Condition: Good
Covid-19: Not Applicable
Discharge Problem:
Urinary tract infection
Instructions: Urinary Tract Infection, Adult (DC)
Prescriptions:
New
cephalexin 500 mg capsule
500 mg PO BID 7 Days Qty: 14 0RF
No Action
losartan 100 mg tablet
100 mg PO DAILY
Patient Comments:
10/24/21 pt in non compliant with medications
sennosides [Senokot] 8.6 mg Tablet
8.6 mg PO DAILY@1999
aspirin 81 mg Tablet,Delayed Release (Dr/Ec)
81 mg PO DAILY
polyethylene glycol 3350 17 gram powder in packet
17 grams PO DAILY
atorvastatin 40 mg Tablet
40 mg PO QPM Qty: 30 0RF
ammonium lactate 12 % Lotion
1 applic topical BID 30 Days Qty: 1 0RF
metoprolol tartrate 50 mg Tablet
50 mg PO BID 30 Days Qty: 60 0RF
bisacodyl 5 mg Tablet,Delayed Release (Dr/Ec)
10 mg PO DAILYPRN PRN (Reason: constipation) 30 Days Qty: 60 0RF
cholecalciferol (vitamin D3) 50 mcg (2,000 unit) Tablet
50 mcg PO TUTHSA@0800 30 Days Qty: 13 0RF
cholecalciferol (vitamin D3) 50 mcg (2,000 unit) Tablet
100 mcg PO SUMOWEFR@0800 30 Days Qty: 36 0RF
sennosides-docusate sodium [Stool Softener-Stimulant Laxat] 8.6-50 mg Tablet
1 tab PO BID 60 Days Qty: 120 0RF
escitalopram oxalate 5 mg Tablet
5 mg PO DAILY 30 Days Qty: 30 0RF
melatonin 5 mg Tablet
5 mg PO HS 30 Days Qty: 30 0RF
acetaminophen 325 mg Tablet
650 mg PO Q6HPRN PRN (Reason: mild pain) 30 Days Qty: 60 0RF
Referrals:
UNKNOWN - PT DOES,NOT KNOW [Family Provider] -
Activity Restrictions/Additional Instructions:
Follow up with your healthcare provider. Return to the emergency department immediately for any changes in/worsening of your symptoms
Interventions
Interventions:
*Risk Screen - Suicide Last Done: 02/29/24 22:58
*General Assessment Last Done: 02/29/24 22:58
*Neglect/Abuse Screening Last Done: 02/29/24 22:58
*ED COVID-19 Vaccine History Last Done: 02/29/24 22:58
Discharge Date and Time
Print Language: SWEDISH
[2024-02-29 20:13] LABS: % Basophils 0.8 % (0-2); % Eosinophils 3.9 % (0-6); % Immature Granulocytes 0.2 % (0-0.5); % Lymphocytes 27.3 % (20.5-51.1); % Monocytes 8.3 % (1.7-9.3); % Neutrophils 59.5 % (42.2-75.2); Absolute Basophils 0.1 10^3/uL (0-0.2); Absolute Eosinophils 0.3 10^3/uL (0-0.7); Absolute Lymphocytes 1.8 10^3/uL (1.2-3.4); Absolute Monocytes 0.5 10^3/uL (0.1-0.6); Absolute Neutrophils 3.8 10^3/uL (1.4-6.5); Hematocrit 40.4 % (37.0-47.0); Hemoglobin 12.8 g/dL (12.0-16.0); Mean Corp Hgb Conc. 31.7 g/dL (33.0-37.0); Mean Corpuscular Hgb 29.6 pg (27.0-31.0); Mean Corpuscular Volume 93.5 fL (81.0-99.0); Mean Platelet Volume 10.3 fL (7.4-10.4); Nucleated Red Blood Cells % 0 %; Platelet Count 249 10^3/uL (130-400); Red Blood Cell Count 4.32 10^6/uL (4.20-5.40); Red Cell Dist. Width 14.5 % (11.5-14.5); White Blood Cell Count 6.4 10^3/uL (4.8-10.8)
[2024-02-29 20:28] LABS: ALT (SGPT) 29 U/L (0-35); AST (SGOT) 35 U/L (14-36); Alkaline Phosphatase 111 U/L (38-126); Blood Urea Nitrogen 25 mg/dl (7-17); Calcium 9.1 mg/dl (8.4-10.2); Carbon Dioxide 30 mmol/L (22-30); Chloride 100 mmol/L (98-107); Glucose 118 mg/dl (70-99); Potassium 4.5 mmol/L (3.5-5.1); Sodium 138 mmol/L (135-145); Total Bilirubin 1.1 mg/dl (0.2-1.3); Total Protein 7.6 g/dl (6.3-8.2); eGFR 43.81
[2024-02-29 23:08] VITALS: BP 137/96
[2024-02-29 23:27] LABS: Urine Albumin 2+ (Neg - Trace); Urine Bilirubin Negative (Negative); Urine Character Very Cloudy (Clear); Urine Color Yellow; Urine Glucose Negative (Negative); Urine Ketone Negative (Negative); Urine Leukocyte 2+ (Negative); Urine Nitrite Positive (Negative); Urine Occult Blood 4+ (Negative); Urine Urobilinogen Negative (Neg - 1+)
[2024-03-01 01:30] LABS: Urine Bacteria Moderate (Negative); Urine Red Blood Cell 21-25 /HPF (0-2); Urine Triple Phosphate Crystal Seen; Urine White Cell >100 /HPF (0-5)
[2024-03-01 01:40] VITALS: BP 136/83
[2024-03-01] MEDS: KEFLEX 500 MG PO (01:53)
== END 2024-03-01 03:17 | disposition home or self-care (01) ==
LOC: EMR 19:55
PROVIDERS: Physician Assistant Medical; Student in an Organized Health Care Education/Training Program; EMERGENCY PHYSICIAN Emergency Medicine
DX: N39.0 Urinary tract infection, site not specified (principal); R62.7 Adult failure to thrive; I48.0 Paroxysmal atrial fibrillation; F03.94 Unspecified dementia, unspecified severity, with anxiety; F41.9 Anxiety disorder, unspecified; I11.0 Hypertensive heart disease with heart failure; I50.9 Heart failure, unspecified; K21.9 Gastro-esophageal reflux disease without esophagitis; D68.00 Von Willebrand disease, unspecified; M06.9 Rheumatoid arthritis, unspecified; Z79.899 Other long term (current) drug therapy; Z79.82 Long term (current) use of aspirin; Z85.828 Personal history of other malignant neoplasm of skin; Z88.1 Allergy status to other antibiotic agents; Z88.8 Allergy status to other drugs, medicaments and biological substances
CPT/HCPCS: 99283; 80053; 81003; 81015; 85025; 87077; 87086